=== PATIENT | female | born 2000 | race Caucasian/White ===

== ENCOUNTER → 2020-03-17 14:36 | Outpatient (BNVA) | payer SELFPAY | PROVIDERS: Family Provider Nurse Practitioner; PCP Nurse Practitioner; Visit Provider Nurse Practitioner Family | DX: J02.9 Acute pharyngitis, unspecified (principal); R05 Cough; R53.83 Other fatigue; R68.83 Chills (without fever) | CPT/HCPCS: 87635 ==

== ENCOUNTER 2020-04-23 13:02 | Emergency (ER) | payer SELFPAY ==
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
--- NOTE | 2020-04-23 13:11 | ECG_ITS ---
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 Measurements Intervals [place] Rate: 72 P: 19 LA: 169 QRS: 42 QRSD: 98 T: 55 QT: 365 QTc: 402 Interpretive Statements SINUS RHYTHM LOW QRS VOLTAGE IN PRECORDIAL LEADS [QRS DEFLECTION < 1.0 mV IN CHEST LEADS] POSSIBLE RIGHT VENTRICULAR CONDUCTION DELAY [RSR (QR) IN V1/V2] SEPTAL MYOCARDIAL INFARCTION , OF INDETERMINATE AGE [40+ ms Q WAVE IN V1/V2] No previous ECG available for comparison Electronically Signed On 04-23-2020 20:22:44 CDT by Narda Mchugh M.D. [email or web address]
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
[2020-04-23 14:13] LABS: Basophils % 0.5 %; Eosinophils % 0.5 %; Hematocrit 41.7 % (37.0-47.0); Hemoglobin 13.3 g/dL (11.5-15.3); Lymphocytes # 1.4 10^3/uL (1.5-6.5); Lymphocytes % 23.9 %; Mean Corpuscular HGB Conc 31.9 g/dL (30.0-36.0); Mean Corpuscular Hemoglobin 26.8 pg (28.0-34.0); Mean Corpuscular Volume 84.1 fL (81-99); Mean Platelet Volume 9.4 fL (7.4-10.4); Monocytes # 0.4 10^3/uL (0.2-0.9); Monocytes % 7.2 %; Neutrophils # 3.84 10^3/uL (1.8-8.0); Neutrophils % 67.5 %; Nucleated Red Blood Cells % 0 %; Platelet Count 253 10^3/cmm (130-400); Red Blood Count 4.96 10^6/uL (4.1-5.3); Red Cell Distribution Width 13.4 % (12.1-15.1); White Blood Count 5.7 10^3/uL (4.5-13.0)
[2020-04-23 14:29] LABS: HCG, Serum Qual Negative (Negative)
[2020-04-23 14:35] LABS: Alanine Aminotransferase 10 U/L (0-33); Albumin Level 4.4 g/dL (3.5-5.2); Alkaline Phosphatase 61 IU/L (35-105); Anion Gap 14.1 (5-19); Aspartate Amino Transferase 13 U/L (0-32); Blood Urea Nitrogen 8 mg/dL (6-20); Calcium 9.1 mg/dL (8.5-10.5); Carbon Dioxide 23 mmol/L (22-29); Chloride 102 mmol/L (98-107); Globulin 3.2 g/dL (1.3-4.6); Glomerular Filtration Rate 91.4 mL/min (90-130); Glucose 100 mg/dL (65-115); Osmolality Calculated 276 mOsm/kg (285-295); Potassium 4.1 mmol/L (3.5-5.1); Sodium 135 mmol/L (136-145); Total Bilirubin 0.5 mg/dL (0.15-1.2); Total Protein 7.6 g/dL (6.6-8.7)
[2020-04-23 14:36] LABS: Lactate (Lactic Acid level) 0.8 mmol/L (0.5-2.2)
[2020-04-23 14:55] LABS: INR 0.98 (0.8-1.2)
[2020-04-23 15:07] LABS: Add Urine Microscopic? YES; Bilirubin Urine Neg (Negative); Blood Urine Neg (Negative); Glucose Urine UA Norm (Normal); Ketones Urine Negative (Negative); Leukocyte Esterase Urine Negative (Negative); Nitrate Urine Negative (Negative); Protein Urine Neg (Negative); Urine Appearance Hazy (CLEAR); Urine Color Yellow (Yellow); Urobilinogen Urine Norm (Negative); pH Urine 7 (5-7)
[2020-04-23] MEDS: iohexol 300 mg/mL 100 mL Btl IV (15:10)
[2020-04-23 15:12] LABS: Add Urine Culture? No; Bacteria Urine 1+ /hpf; Mucus Urine TRACE /hpf; Squamous Epithelial Cell Urine 0-4 /hpf (0-5)
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
[2020-04-23] MEDS: sodium chloride 0.9% 1,000 ML 999 ML IV (15:59)
[2020-04-23 16:36] VITALS: BP 135/49; PULSE 71; RESP 18; O2SAT 100
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
--- NOTE | 2020-04-24 15:52 | PC.NURSE ---
Patient had frog splint applied per Clair Shukla RN.
== END 2020-04-23 16:40 | disposition home or self-care (01) ==
PROVIDERS: Emergency Provider Emergency Medicine; PCP Nurse Practitioner
DX: S20.211A Contusion of right front wall of thorax, initial encounter (principal); S80.02XA Contusion of left knee, initial encounter; S62.641A Nondisplaced fracture of proximal phalanx of left index finger, initial encounter for closed fracture; V89.2XXA Person injured in unspecified motor-vehicle accident, traffic, initial encounter
CPT/HCPCS: 12345; 29130; 36415; 70450; 71260; 72125; 73060; 73130; 73552; 73590; 74177; 80053; 81001; 83605; 84703; 85025; 85610; 93005; 96360; 99282; 99284; J7030; Q9967

== ENCOUNTER → 2020-05-01 10:18 | Outpatient (BNVA) | payer SELFPAY | PROVIDERS: PCP Nurse Practitioner; Visit Provider Nurse Practitioner Family | DX: S62.641D Nondisplaced fracture of proximal phalanx of left index finger, subsequent encounter for fracture with routine healing (principal); V89.2XXD Person injured in unspecified motor-vehicle accident, traffic, subsequent encounter; M79.605 Pain in left leg; Z68.28 Body mass index [BMI] 28.0-28.9, adult | CPT/HCPCS: 73130; 73590 ==

== ENCOUNTER → 2020-05-09 19:06 | Outpatient (BNVA) | payer OTHER, SELFPAY | PROVIDERS: PCP Nurse Practitioner; Visit Provider Nurse Practitioner Family | DX: Z20.828 Contact with and (suspected) exposure to other viral communicable diseases (principal) | CPT/HCPCS: 87635 ==

== ENCOUNTER 2020-06-17 12:54 | Outpatient (CLI) | payer SELFPAY ==
--- NOTE | 2020-06-17 13:04 | XR_ITS ---
WS: [id number] Lumbar spine, AP, both obliques, L5-S1 spot, lateral views in neutral, flexion and extension, 06/17/20 Clinical Data: back pain Comparison: Lumbar spine, 03/31/2019. Findings: No compression fractures or subluxation is seen. No disc space narrowing is seen. The transverse proc esses and SI joints are normal. The oblique films show no spondylolysis. There is no limitation of motion or subluxation on flexion or extension. XR/XR lumbar spine 6V w f/e [id number] Impression: 1. Negative lumbar spine. 2. Negative for limitation of motion or subluxation on flexion or extension.
--- NOTE | 2020-06-17 13:04 | XR_ITS ---
WS: [id number] Thoracic spine, 3 views, 06/17/2020 Clinical Data: back pain Comparison: None. Findings: No compression fractures are seen. The disc heights are normal. The para vertebral regions are normal. XR/XR thoracic spine 3V* [id number] Impression: Negative thoracic spine.
== END 2020-06-17 12:55 | disposition home or self-care (01) ==
LOC: RADWPI 12:57
PROVIDERS: PCP Nurse Practitioner; Visit Provider Family Medicine
DX: M54.5 Low back pain (principal); M54.6 Pain in thoracic spine
CPT/HCPCS: 72072; 72114

== ENCOUNTER → 2020-06-24 12:13 | Outpatient (BNVA) | payer SELFPAY | PROVIDERS: PCP Nurse Practitioner; Referring Provider Family Medicine; Visit Provider Specialist | DX: S62.641D Nondisplaced fracture of proximal phalanx of left index finger, subsequent encounter for fracture with routine healing (principal); X58.XXXD Exposure to other specified factors, subsequent encounter | CPT/HCPCS: 73140 ==

== ENCOUNTER 2020-07-14 06:00 | Outpatient (RCR) | payer SELFPAY | END 2020-08-13 23:59 | disposition home or self-care (01) | LOC: SPT 06:00 | PROVIDERS: PCP Nurse Practitioner; Referring Provider Family Medicine; Visit Provider Family Medicine | DX: M54.5 Low back pain (principal) | CPT/HCPCS: 97110; 97161 ==

== ENCOUNTER 2020-07-14 06:00 | Outpatient (RCR) | payer SELFPAY | END 2020-08-13 23:59 | disposition home or self-care (01) | LOC: TOT 06:00 | PROVIDERS: PCP Nurse Practitioner; Referring Provider Specialist; Visit Provider Specialist | DX: S62.601D Fracture of unspecified phalanx of left index finger, subsequent encounter for fracture with routine healing (principal) | CPT/HCPCS: 97110; 97165 ==

== ENCOUNTER 2020-08-14 06:00 | Outpatient (RCR) | payer SELFPAY | END 2020-09-13 23:59 | disposition home or self-care (01) | LOC: TOT 06:00 | PROVIDERS: PCP Nurse Practitioner; Referring Provider Specialist; Visit Provider Specialist | DX: S62.601D Fracture of unspecified phalanx of left index finger, subsequent encounter for fracture with routine healing (principal) | CPT/HCPCS: 97110 ==

== ENCOUNTER 2020-08-14 06:00 | Outpatient (RCR) | payer SELFPAY | END 2020-09-13 23:59 | disposition home or self-care (01) | LOC: SPT 06:00 | PROVIDERS: PCP Nurse Practitioner; Referring Provider Family Medicine; Visit Provider Family Medicine | DX: R41.841 Cognitive communication deficit (principal) | CPT/HCPCS: 97110 ==

== ENCOUNTER 2020-09-10 06:00 | Outpatient (RCR) | payer SELFPAY | END 2020-09-13 23:59 | disposition home or self-care (01) | LOC: SST 06:00 | PROVIDERS: PCP Nurse Practitioner; Referring Provider Family Medicine; Visit Provider Family Medicine | DX: R41.841 Cognitive communication deficit (principal) | CPT/HCPCS: 96125; 97129; 97130 ==

== ENCOUNTER 2020-09-14 06:00 | Outpatient (RCR) | payer SELFPAY | END 2020-10-11 23:59 | disposition home or self-care (01) | LOC: SST 06:00 | PROVIDERS: PCP Nurse Practitioner; Referring Provider Family Medicine; Visit Provider Family Medicine | DX: R41.841 Cognitive communication deficit (principal) | CPT/HCPCS: 97129; 97130 ==

== ENCOUNTER 2020-09-14 06:00 | Outpatient (RCR) | payer SELFPAY | END 2020-10-11 23:59 | disposition home or self-care (01) | LOC: SPT 06:00 | PROVIDERS: PCP Nurse Practitioner; Referring Provider Family Medicine; Visit Provider Family Medicine | DX: R41.81 Age-related cognitive decline (principal) | CPT/HCPCS: 97110 ==

== ENCOUNTER 2020-10-12 06:00 | Outpatient (RCR) | payer SELFPAY | END 2020-11-11 23:59 | disposition home or self-care (01) | LOC: SST 06:00 | PROVIDERS: PCP Nurse Practitioner; Referring Provider Family Medicine; Visit Provider Family Medicine | DX: R41.841 Cognitive communication deficit (principal) | CPT/HCPCS: 97129; 97130 ==

== ENCOUNTER 2020-10-12 06:00 | Outpatient (RCR) | payer SELFPAY | END 2020-11-11 23:59 | disposition home or self-care (01) | LOC: SPT 06:00 | PROVIDERS: PCP Nurse Practitioner; Referring Provider Family Medicine; Visit Provider Family Medicine | DX: S09.90XD Unspecified injury of head, subsequent encounter (principal); R41.841 Cognitive communication deficit; X58.XXXD Exposure to other specified factors, subsequent encounter | CPT/HCPCS: 97110 ==

== ENCOUNTER → 2020-10-23 07:57 | Outpatient (BNVA) | payer SELFPAY | PROVIDERS: PCP Nurse Practitioner Family; Visit Provider Specialist | DX: G31.84 Mild cognitive impairment of uncertain or unknown etiology (principal); F07.81 Postconcussional syndrome; G43.711 Chronic migraine without aura, intractable, with status migrainosus; F41.8 Other specified anxiety disorders | CPT/HCPCS: 96116; 99205 ==

== ENCOUNTER 2020-11-03 08:44 | Outpatient (CLI) | payer SELFPAY ==
--- NOTE | 2020-11-03 08:53 | MR_ITS ---
WS: [id number] MRI BRAIN WITHOUT CONTRAST HISTORY: G31.84 - Mild cognitive impairment, COMPARISON: 04/23/2020 CT. TECHNIQUE: Diffusion imaging, multiplanar T1, T2 and FLAIR imaging obtained. No evidence for acute infarct or hemorrhage. Flaherty-white matter differentiation is normal. No remote or acute infarcts are volume loss. Ventricles and extra-axial spaces are normal. No inferior displacement of cerebellar tonsils. The sella turcica and pituitary gland are unremarkabl e. Posterior fossa is also unremarkable. Dural venous sinuses and [place] of [place] demonstrate no abnormality on this unenhanced studies. Paranasal sinuses: Clear. Mastoid air cells: Normal. Calvarium and scalp: Intact. MR/MR head wo con* [id number] IMPRESSION: 1. Unremarkable noncontrast MRI brain.
== END 2020-11-03 08:45 | disposition home or self-care (01) ==
LOC: RADWPI 08:49
PROVIDERS: PCP Nurse Practitioner Family; Visit Provider Specialist
DX: G31.84 Mild cognitive impairment of uncertain or unknown etiology (principal); F07.81 Postconcussional syndrome
CPT/HCPCS: 70551; 95816

== ENCOUNTER 2020-11-12 06:00 | Outpatient (RCR) | payer SELFPAY | END 2020-12-11 23:59 | disposition home or self-care (01) | LOC: SST 06:00 | PROVIDERS: PCP Nurse Practitioner Family; Referring Provider Family Medicine; Visit Provider Family Medicine | DX: R41.3 Other amnesia (principal) | CPT/HCPCS: 97129; 97130 ==

== ENCOUNTER → 2020-12-02 11:33 | Outpatient (BNVA) | payer SELFPAY | PROVIDERS: PCP Nurse Practitioner Family; Visit Provider Specialist | DX: G43.709 Chronic migraine without aura, not intractable, without status migrainosus (principal); F07.81 Postconcussional syndrome | CPT/HCPCS: 99213; 99214 ==

== ENCOUNTER 2020-12-12 06:00 | Outpatient (RCR) | payer SELFPAY | END 2021-01-11 23:59 | disposition home or self-care (01) | LOC: SST 06:00 | PROVIDERS: PCP Nurse Practitioner Family; Referring Provider Family Medicine; Visit Provider Family Medicine | DX: R41.841 Cognitive communication deficit (principal) | CPT/HCPCS: 92507; 97129; 97130 ==

== ENCOUNTER 2021-01-12 06:00 | Outpatient (RCR) | payer SELFPAY | END 2021-02-10 23:59 | disposition home or self-care (01) | LOC: SST 06:00 | PROVIDERS: PCP Nurse Practitioner Family; Referring Provider Family Medicine; Visit Provider Family Medicine | DX: R41.841 Cognitive communication deficit (principal) | CPT/HCPCS: 97129; 97130 ==

== ENCOUNTER → 2021-01-21 15:02 | Outpatient (BNVA) | payer SELFPAY | PROVIDERS: PCP Nurse Practitioner Family; Visit Provider Registered Nurse Neonatal Intensive Care | DX: Z34.90 Encounter for supervision of normal pregnancy, unspecified, unspecified trimester (principal) | CPT/HCPCS: 81025 ==

== ENCOUNTER → 2021-02-04 15:54 | Outpatient (BNVA) | payer MEDICAID, SELFPAY | PROVIDERS: PCP Nurse Practitioner Family; Visit Provider Nurse Practitioner Women's Health | DX: Z32.01 Encounter for pregnancy test, result positive (principal); R30.0 Dysuria; N92.6 Irregular menstruation, unspecified | CPT/HCPCS: 81000; 81025; 87086 ==

== ENCOUNTER 2021-02-11 06:00 | Outpatient (RCR) | payer MEDICAID, SELFPAY | END 2021-03-13 23:59 | disposition home or self-care (01) | LOC: SST 06:00 | PROVIDERS: PCP Nurse Practitioner Family; Referring Provider Family Medicine; Visit Provider Family Medicine | DX: R41.841 Cognitive communication deficit (principal) | CPT/HCPCS: 87077; 87086; 87184; 97129; 97130 ==

== ENCOUNTER → 2021-02-19 09:30 | Outpatient (BNVA) | payer MEDICAID, SELFPAY | PROVIDERS: PCP Nurse Practitioner Family; Visit Provider Nurse Practitioner Women's Health | DX: O99.891 Other specified diseases and conditions complicating pregnancy (principal); R82.71 Bacteriuria; Z3A.00 Weeks of gestation of pregnancy not specified | CPT/HCPCS: 81000 ==

== ENCOUNTER → 2021-05-12 11:14 | Outpatient (BNVA) | payer BC, MEDICAID, SELFPAY | PROVIDERS: PCP Nurse Practitioner Family; Visit Provider Specialist | DX: G43.711 Chronic migraine without aura, intractable, with status migrainosus (principal); F07.81 Postconcussional syndrome; R55 Syncope and collapse | CPT/HCPCS: 99214 ==

== ENCOUNTER → 2021-06-04 08:06 | Outpatient (BNVA) | payer BC, MEDICAID, SELFPAY | PROVIDERS: PCP Nurse Practitioner Family; Visit Provider Social Worker | DX: F43.12 Post-traumatic stress disorder, chronic (principal) | CPT/HCPCS: 90834 ==

== ENCOUNTER 2021-07-04 01:48 | Outpatient (CLI) | payer BC, MEDICAID, SELFPAY ==
[2021-07-04] VITALS (56 sets, daily range): BP systolic 122–135; BP diastolic 67–75; PULSE 59–101; RESP 18; TEMP 36.6–37.4; O2SAT 92–100; BMI 30.3
[2021-07-04] MEDS: terbutaline 1 mg/mL INJ 0.25 MG SUBCUT (03:10)
[2021-07-04] MEDS: betamethasone susp 6 mg/mL 5 mL 12 MG IM (03:11)
[2021-07-04 04:00] LABS: Urine Appearance Clear (CLEAR); Urine Color Yellow (Yellow)
[2021-07-04] MEDS: lactated ringers 1,000 ML 999 ML IV (04:00)
[2021-07-04 04:02] LABS: pH Urine 8 (5-7)
[2021-07-04 04:03] LABS: Add Urine Microscopic? YES; Bilirubin Urine Neg (Negative); Blood Urine Neg (Negative); Glucose Urine UA Norm (Normal); Ketones Urine 1+ (Negative); Nitrate Urine Negative (Negative); Protein Urine 3+ (Negative); Sulfosalicylic Acid Urine Positive (Negative); Urobilinogen Urine 1 mg/dL (Negative)
[2021-07-04 04:04] LABS: Leukocyte Esterase Urine Trace (Negative)
[2021-07-04 04:05] LABS: Amorphous Sediment Urine 1+ /hpf; Bacteria Urine 1+ /hpf; Mucus Urine 4+ /hpf; RBC Urine 0-4 /hpf (0-2); Squamous Epithelial Cell Urine 0-4 /hpf (0-5); WBC Urine 15-25 /hpf (0-5)
[2021-07-04 04:06] LABS: Add Urine Culture? No
--- NOTE | 2021-07-04 06:06 | USR_ITS ---
PROCEDURE INFORMATION: Exam: US Retroperitoneal; Complete; Kidneys and Bladder Exam date and time: 07/04/2021 6:06 AM Age: 21 years old Clinical indication: Pain; Other: Lower back; ; Additional info: Lower back pain, rule out kidney stone and hydronephrosis TECHNIQUE: Imaging protocol: Real-time ultrasound of the retroperitoneum with image documentation. Complete exam focused on the kidneys and bladder. COMPARISON: CT chest abd pel w con* 04/23/2020 3:01 PM FINDINGS: Right kidney: Normal. No stones. No hydronephrosis. Left kidney: Normal. No stones. No hydronephrosis. Aorta: The visualized portion of the abdominal aorta is normal with no aneurysm. Urinary bladder: Unremarkable. US/US renal BI* [id number] IMPRESSION: Normal study Radiation Dose CTDIVOL = (mGy): DLP = (mGy-cm)
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
[2021-07-04] MEDS: cefTRIAXone 1,000 MG in sodium chloride 0.9% (plus) 50 ML 100 MG IV (06:27)
--- NOTE | 2021-07-04 09:44 | P.PN_ITS ---
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 Other than feeling off, she has no other significant symptoms. She denies any new swelling. She has no visual changes. She did complain of some contractions but those resolved after being in the hospital and being hydrated. Labor: Station: -5 Amniotic Membrane Status: Intact Monitor Mode: External Contraction Pattern: Absent Vitals/I&O/Wt Last Vital Signs Temp 98.3 F 07/04/21 03:33 Pulse 59 L 07/04/21 07:15 Resp 18 07/04/21 01:48 BP 122/67 07/04/21 07:15 Pulse Ox 98 07/04/21 07:04 Weight last 48 hrs Weight 188 lb Weight 188 lb Physical Exam Narrative: EXAM NARRATIVE: The patient is alert. She appears comfortable. Her heart has a regular rate and rhythm with no murmurs appreciated. Lungs are clear to auscultation bilaterally. She has tenderness to palpation in her lower lumbar spine area bilaterally. There is no CVA tenderness. A&P Assessment and plan (1) Low back pain: The patient is feeling much better. She tolerated a diet fine. Her back pain is resolved. She would like to go home. I instructed her to contact us, or to come back again if she had any other concerns. 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
== END 2021-07-04 09:53 | disposition home or self-care (01) ==
LOC: OPOB 01:58 → OBGYN 01:59
PROVIDERS: PCP Nurse Practitioner Family; Visit Provider Family Medicine
DX: O99.891 Other specified diseases and conditions complicating pregnancy (principal); M54.50 Low back pain, unspecified; Z3A.14 14 weeks gestation of pregnancy; O47.00 False labor before 37 completed weeks of gestation, unspecified trimester
CPT/HCPCS: 12345; 59025; 76770; 76819; 81001; 96360; 96372; 99211; J0696; J0702; J3105

== ENCOUNTER 2021-07-05 08:50 | Outpatient (CLI) | payer BC, MEDICAID, SELFPAY ==
[2021-07-05] VITALS (65 sets, daily range): BP systolic 160–208; BP diastolic 81–116; PULSE 60–100; RESP 17–22; TEMP 36.9–37.1; O2SAT 92–100; BMI 31.3
--- NOTE | 2021-07-05 09:53 | US_ITS ---
WS: [id number] RENAL ULTRASOUND HISTORY: right flank and back pain COMPARISON: 07/04/2021 TECHNIQUE: 2-D and color Doppler imaging of the kidney submitted. Right kidney: 11.1 cm x 4.5 cm x 4.2 cm. Normal echogenicity with no hydronephrosis or mass. Left kidney: 12.2 cm x 5.2 cm x 4.2 cm. Normal echogenicity with no hydronephrosis or mass. Aorta: Normal. Urinary Bladder: Normal distention. US/US renal BI* [id number] IMPRESSION: Normal renal ultrasound. No hydronephrosis.
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
[2021-07-05] MEDS: sodium chloride 0.9% 1,000 ML 999 ML IV ×2 (10:36→12:39)
[2021-07-05] MEDS: ondansetron 2 mg/ML SDV 2 mL 4 MG IVP ×2 (10:37→12:39)
[2021-07-05] MEDS: morphine 4 mg/mL SDV 1 mL 2 MG IVP (10:37)
[2021-07-05 10:40] LABS: Bilirubin Urine Neg (Negative); Blood Urine Neg (Negative); Glucose Urine UA Norm (Normal); Ketones Urine Negative (Negative); Leukocyte Esterase Urine Negative (Negative); Nitrate Urine Negative (Negative); Protein Urine 3+ (Negative); Urine Appearance Hazy (CLEAR); Urine Color Yellow (Yellow); Urobilinogen Urine Norm (Negative); pH Urine 5 (5-7)
[2021-07-05 10:41] LABS: Add Urine Microscopic? YES; Bacteria Urine 1+ /hpf; Mucus Urine 1+ /hpf; RBC Urine 0-4 /hpf (0-2); Squamous Epithelial Cell Urine 25-40 /hpf (0-5); WBC Urine 25-40 /hpf (0-5)
[2021-07-05 10:42] LABS: Add Urine Culture? No
[2021-07-05 10:47] LABS: Basophils # 0.1 10^3/uL (0.0-0.1); Basophils % 0.3 %; Eosinophils % 0.2 %; Hematocrit 32.6 % (37.0-47.0); Hemoglobin 10.9 g/dL (11.5-15.3); Lymphocytes # 2.8 10^3/uL (0.8-4.8); Lymphocytes % 15.7 %; Mean Corpuscular HGB Conc 33.4 g/dL (30.0-36.0); Mean Corpuscular Hemoglobin 29.1 pg (28.0-34.0); Mean Corpuscular Volume 86.9 fl (81-99); Mean Platelet Volume 11.6 fL (7.4-10.4); Monocytes % 5.7 %; Neutrophils # 13.32 10^3/uL (1.8-7.7); Neutrophils % 75.3 %; Nucleated Red Blood Cells % 0 %; Platelet Count 151 10^3/cmm (130-400); Red Blood Count 3.75 10^6/uL (4.1-5.3); Red Cell Distribution Width 14.1 % (12.1-15.1); White Blood Count 17.7 10^3/uL (4.0-10.0)
[2021-07-05 11:10] LABS: Alanine Aminotransferase 92 U/L (0-33); Albumin Level 3.3 g/dL (3.5-5.2); Alkaline Phosphatase 79 IU/L (35-105); Anion Gap 17.9 (5-19); Aspartate Amino Transferase 56 U/L (0-32); Blood Urea Nitrogen 14 mg/dL (6-20); Calcium 7.9 mg/dL (8.5-10.5); Carbon Dioxide 19 mmol/L (22-29); Chloride 104 mmol/L (98-107); Globulin 2.9 g/dL (1.3-4.6); Glomerular Filtration Rate 126.2 mL/min (90-130); Glucose 83 mg/dL (65-115); Osmolality Calculated 284 mOsm/kg (285-295); Potassium 3.9 mmol/L (3.5-5.1); Sodium 137 mmol/L (136-145); Total Bilirubin 0.3 mg/dL (0.15-1.2); Total Protein 6.2 g/dL (6.6-8.7)
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
--- NOTE | 2021-07-05 12:33 | US_ITS ---
WS: [id number] ULTRASOUND ABDOMINAL AORTA HISTORY: ABD PAIN COMPARISON: None available. TECHNIQUE: 2-D and Doppler imaging submitted. There is a large amount of gas and fecal content in the RIGHT lower quadrant obscuring the soft tissu es. The appendix is not identified. No inflammatory collection. US/US appendix [id number] IMPRESSION: Appendix not identified due to a large amount of fecal material in the RIGHT lo wer quadrant.
[2021-07-05] MEDS: morphine 4 mg/mL SDV 1 mL IVP ×2 (12:39→14:25)
[2021-07-05] MEDS: labetalol 5 mg/mL SDV 20mL 20 MG IVP ×2 (14:45→17:20)
[2021-07-05 15:04] LABS: Uric Acid 5.1 mg/dL (2.4-5.7)
[2021-07-05] MEDS: labetalol 5 mg/mL SDV 20mL 40 MG IVP (15:09)
[2021-07-05] MEDS: sodium chloride 0.9% 1,000 ML 125 ML IV (15:19)
[2021-07-05 15:32] LABS: Urine Creatinine 227 mg/dL (28-217)
[2021-07-05 15:44] LABS: UPRO/UCREAT Ratio 1.73 mg/mg CR; Urine Protein Random 392 mg/dL
[2021-07-05] MEDS: betamethasone susp 6 mg/mL 5 mL 12 MG IM (15:52)
[2021-07-05] MEDS: magnesium sulfate premix 4 GM/100 ML PREMIX IV (16:02)
[2021-07-05] MEDS: magnesium sulfate premix 2 GM/50 ML PIGGYBACK IV (16:03)
[2021-07-05] MEDS: labetalol 5 mg/mL SDV 20mL 80 MG IVP (16:13)
--- NOTE | 2021-07-05 16:14 | P.SS_ITS ---
Short Stay Summary Providers Date of Admit/Discharge: 07/05/21 Attending Provider: Waqas Baumann MD Primary Care Provider: Janeth Blake APN Chief Complaint: contractions HPI History of Present Illness Ayden Koenig is a 21 year old 1 female at 28 weeks and 3 days based on a first trimester ultrasound who presented to the hospital complaining of back pain and then abdominal pain. She actually arrived to the hospital yesterday complaining of back pain. She was evaluated with a urinalysis and ultrasound, and ultimately her pain resolved spontaneously she had no further complaints and she was discharged home. She had recurrent pain last night that worsened to the point where she came to the hospital this morning. She once again originally had back pain on her right lower side. That then changed to abdominal pain which then finally changed to epigastric pain. She had nausea and vomiting this morning. She denied any headache or visual changes. She denied any swelling. During her hospital stay, her blood pressure increased to the point where she was having blood pressures as high as 201/111 after having received several doses of labetalol per protocol. Prior to that point her was remarkable for having an identifiable antibody. She also had a an apparent false positive RPR. With a follow-up FTA?ABS being negative. Review of Systems General: Reports: 10 or more systems reviewed and unremarkable except in HPI and below Const: Reports: fatigue; Denies: fever(s) Eyes: Denies: change in vision Card: Denies: chest pain Resp: Denies: dyspnea or productive cough GI: Reports: abdominal pain (Currently epigastric pain), nausea, vomiting and heartburn; Denies: hematemesis or diarrhea : Reports: flank pain and urinary frequency; Denies: difficulty voiding or dysuria Musc: Reports: back pain Everardo/Lymph: Denies: easy bruising Home Meds/Allergies Home Medications and Allergies Home Medications Medication Instructions Recorded Confirmed Type [id number] 1 tab PO DAILY 07/05/21 07/05/21 History [] Allergies Allergy/AdvReac Type Severity Reaction Status Date / Time latex AdvReac ALGY-Swell Verified 07/04/21 05:27 Lip/Tongue/Throat PFSH Acute PFSH: Medical History Chronic migraine without aura, intractable, with status migrainosus Closed fracture of phalanx of left index finger Depression with anxiety No pertinent past medical history neghx:htn,dm,thyroid,dvt/pe 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 Surgical History No pertinent past surgical history Family History Grandmother Cancer MGGM- breast and lung Grandmother Cancer PGF- Lung cancer Grandfather Cancer MGGF-- Colon cancer Denies family history of Diabetes CAD (coronary artery disease) Clotting disorder Dementia Hyperlipidemia Psychiatric illness Chronic kidney disease (CKD) Suicide Bleeding disorder Family history of premature coronary artery disease Lung disease Hypertension Stroke Social History Smoking and tobacco status: never smoked Current occupational status: employed Current occupation: [employer] Female Reproductive History: : 1 Vitals/I&O/Wt Last Vital Signs Temp 98.5 F 07/05/21 15:14 Pulse 91 07/05/21 16:11 Resp 18 07/05/21 15:14 BP 201/111 07/05/21 16:04 Pulse Ox 97 07/05/21 16:11 07/05/21 07/05/21 07/05/21 06:59 14:59 22:59 Intake Total 1999 Balance 1999 Weight last 48 hrs Weight 194 lb Physical Exam Const: COMMON NORMALS: no acute distress and patient oriented x3 GENERAL APPEARANCE: cooperative and well developed HENMT: COMMON NORMALS: normocephalic and moist oral mucous membranes HEAD & SCALP: normocephalic Chest: COMMONS NORMALS: normal inspection of the chest Resp: COMMON NORMALS: normal respiratory effort and clear to auscultation bilaterally AUSCULTATION: clear to auscultation bilaterally Cardio: COMMON NORMALS: regular rate, regular rhythm, No gallops present (Cardio), No murmurs present (Cardio) and No rub (Cardio) RATE: regular rate RHYTHM: regular rhythm Extremity: COMMON NORMALS: normal to inspection Neuro: COMMON NORMALS: patient oriented x3 and no focal motor deficits Skin: COMMON NORMALS: no rashes or lesions noted GENERAL SKIN EXAM: no rashes or lesions noted Hospital Course Discharge Summary The patient had blood pressure that increased despite labetalol given for the hypertensive protocol. But has now stabilized since she has been placed on magnesium. Overall, the patient actually looks better now. The lab work as well as imaging findings will be sent. I was able to contact Dr. David with [facility] and he has agreed except the patient. Patient will be transferred via ground ambulance. SSS Data Data Completed and Pending: Completed Studies During Hospitalization Category Date Time Status [place] appendix [id number] Routine Ultrasound 07/05/21 12:33 Completed US gall bladder 7 [id number] Stat Ultrasound 07/05/21 12:22 Completed US renal BI* [id number] Routine Ultrasound 07/05/21 09:53 Completed Pending at discharge Category Date Time Status Magnesium Level ( OB Only) Q6H Lab 07/05/21 22:00 Uncollected Diagnoses at Discharge Discharge Diagnosis (1) Severe preeclampsia: Status: Acute (2) 28 weeks gestation of : Status: Acute (3) Epigastric pain: Status: Acute Discharge Plan Discharge Patient Disposition: Home Prescriptions: No Action 1 mg Tablet 1 tab PO DAILY RF: 0 Attestations Medical Necessity Statement*: The patient will be transferred Time Spent in Patient Care*: greater than 30 min Quality Metrics Clinical Quality Measures: During this hospital stay, did patient experience: None Coding Level of Care Code Acute Data Quality Consultant for Altong Fwd Diagnoses Severe preeclampsia O14.10 28 weeks gestation of Z3A.28 Epigastric pain R10.13
[2021-07-05] MEDS: magnesium sulfate premix 20 GM/500 ML BAG IV (16:27)
[2021-07-05] MEDS: hyDRALAzine 20 mg/mL INJ 1 mL 5 MG IVP (17:42)
--- NOTE | 2021-07-05 18:38 | PC.NURSE ---
1745 Air evac 1 here on floor at this time, report was given to crew and care transferred at this time Patient stable at time of care transferred.
== END 2021-07-05 18:20 | disposition home or self-care (01) ==
LOC: OPOB 08:51 → OBGYN 08:52
PROVIDERS: PCP Nurse Practitioner Family; Visit Provider Family Medicine
DX: O14.13 Severe pre-eclampsia, third trimester (principal); Z3A.28 28 weeks gestation of pregnancy; R10.13 Epigastric pain; O47.03 False labor before 37 completed weeks of gestation, third trimester; O99.891 Other specified diseases and conditions complicating pregnancy; R16.0 Hepatomegaly, not elsewhere classified
CPT/HCPCS: 12345; 36415; 51702; 59025; 76705; 76770; 80053; 81001; 82570; 84156; 84550; 85025; 93976; 96372; 99211; J0360; J0702; J2270; J2405; J3475; J3490; J7030

== ENCOUNTER → 2022-02-08 11:17 | Outpatient (BNVA) | payer BC, MEDICAID, SELFPAY | PROVIDERS: Visit Provider Registered Nurse Neonatal Intensive Care | DX: Z32.00 Encounter for pregnancy test, result unknown (principal) | CPT/HCPCS: 81025 ==

== ENCOUNTER 2022-02-22 13:49 | Emergency (ER) | payer BC, MEDICAID, SELFPAY ==
--- NOTE | 2022-02-22 14:22 | W.ED.COVID ---
HPI - COVID General: Chief Complaint: General Medical Stated Complaint: covid Symptoms, preg 12 weeks Time Seen by Provider: 02/22/22 14:22 Source: patient Mode of arrival: ambulatory Limitations: no limitations Triage information: Has fever, cough or shortness of breath. History of Present Illness: 22-year-old female at 12 weeks gestation. Patient is G2, P1. She presents with complaints of cough congestion myalgias low-grade fever initially began with some mild diarrhea which is already stopped. Patient has not had any known exposures to anyone who is COVID-positive Prior covid testing: no COVID 19 common symptoms: positive fever(s), chills, cough, non-productive cough, dyspnea, fatigue, body aches, headache(s), throat pain, nasal congestion, nausea and diarrhea; negative vomiting COVID 19 other sytmptoms: negative chest pain or requiring oxygen Onset (ago): day(s) (2) Severity: mild Pertinent comorbid conditions: Treatment prior to arrival: acetaminophen COVID Results: SARS-CoV-2 RNA (RT-PCR) Detected (NOT DETECTED) A 05/09/20 19:06 05/09/20 Review of Systems Const: Reports: fever(s), chills, body aches and fatigue ENMT: Reports: throat pain and nasal congestion Card: Denies: chest pain, palpitations, edema, dyspnea on exertion or orthopnea Resp: Reports: dyspnea and non-productive cough GI: Reports: nausea and diarrhea; Denies: abdominal pain or vomiting : Denies: flank pain, difficulty voiding, dysuria, urinary frequency or urinary urgency Skin/Breast: Denies: rash or pruritus Neuro: Reports: headache(s) PFS ED PFSH: Medical History Chronic migraine without aura, intractable, with status migrainosus Closed fracture of phalanx of left index finger Depression with anxiety No pertinent past medical history neghx:htn,dm,thyroid,dvt/pe 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 Surgical History No pertinent past surgical history Family History Grandmother Cancer MGGM- breast and lung Grandmother Cancer PGF- Lung cancer Grandfather Cancer MGGF-- Colon cancer Denies family history of Diabetes CAD (coronary artery disease) Clotting disorder Dementia Hyperlipidemia Psychiatric illness Chronic kidney disease (CKD) Suicide Bleeding disorder Family history of premature coronary artery disease Lung disease Hypertension Stroke Social History Smoking and tobacco status: never smoked Current occupational status: employed Current occupation: [employer] Physical Exam Const: COMMON NORMALS: no acute distress GENERAL APPEARANCE: cooperative and comfortable ORIENTATION/CONSCIOUSNESS: Yes awake, Yes oriented to person, Yes oriented to place and Yes oriented to time HENMT: COMMON NORMALS: normocephalic, atraumatic and hearing grossly normal bilaterally HEAD & SCALP: normocephalic and atraumatic Neck/C-Spine: COMMON NORMALS: no JVD Resp: COMMON NORMALS: normal respiratory effort, No retractions, No use of accessory muscles and clear to auscultation bilaterally AUSCULTATION: clear to auscultation bilaterally Cardio: COMMON NORMALS: no JVD, regular rate, regular rhythm and No murmurs present (Cardio) RATE: regular rate RHYTHM: regular rhythm GI: COMMON NORMALS: Soft to palpation and No hepatosplenomegaly present AUSCULTATION: Yes normoactive bowel sounds PALPATION: Yes Soft to palpation, No Tenderness to palpation present (GI), No Guarding due to palpation present (GI) and Yes No hepatosplenomegaly present Extremity: COMMON NORMALS: normal to inspection, capillary refill normal, no clubbing, cyanosis or edema, no calf tenderness and no pedal edema Neuro: SENSORIUM/ORIENTATION: Yes oriented to person, Yes oriented to place and Yes oriented to time Skin: COMMON NORMALS: no rashes or lesions noted GENERAL SKIN EXAM: no rashes or lesions noted Course Vital Signs: Vital signs: Vital Signs Temperature 98.5 F 02/22/22 14:36 Pulse Rate 114 H 02/22/22 15:03 Respiratory Rate 15 02/22/22 14:36 Blood Pressure 132/80 02/22/22 15:03 Pulse Oximetry 99 02/22/22 15:03 MDM - COVID Medical Decision Making Mild symptoms no hypoxia chest x-ray normal supportive cares recheck if he has any worsening monitor home O2. Medical Records I reviewed the patient's medical records. Lab Data I reviewed the patient's lab results. Radiology Impressions Chest X-Ray 02/22/22 14:28 IMPRESSION: No obvious acute consolidation. Suboptimal lung base assessment. Followup including lateral view may be obtained if clinically indicated. Laboratory Results Coronavirus 229E (PCR) Cancelled 02/22/22 14:36 SARS-CoV-2 (PCR) Cancelled 02/22/22 14:36 SARS-CoV-2 RNA (RT-PCR) Detected (NOT DETECTED) A 05/09/20 19:06 05/09/20 Discharge Plan Discharge Patient Disposition: Home Clinical Impression: Suspected 2019-nCoV infection, Condition: Stable Discharge Orders: Discharge ED (Routine); Ordered 02/22/22 Ordered By: Bryce Winchester Discharge Diet: Usual diet Discharge Activity: Limit activity as instructed Patient Instructions: Opioid Safety Activity Restrictions/Additional Instructions: You were tested for COVID-19. Recommend you maintain self quarantine until results are available. If you have significant worsening of symptoms return to the emergency room. Coding Level of Care Code ED Fabrication Department Supervisor for Karley Rodriguez
--- NOTE | 2022-02-22 14:28 | XRR_ITS ---
PROCEDURE INFORMATION: Exam: XR Chest Exam date and time: 02/22/2022 2:34 PM Age: 22 years old Clinical indication: Patient HX: History--cough and dyspnea since yesterday. 12 wk preg; Additional info: Dyspnea/cough TECHNIQUE: Imaging protocol: Radiologic exam of the chest. Views: 1 view. COMPARISON: CT chest abd pel w con* 04/23/2020 3:01 PM FINDINGS: Lungs: The lung bases are suboptimally assessed due to technique however the upper lungs are clear of focal consolidation. Pleural spaces: Unremarkable. No pleural effusion. No pneumothorax. Heart/Mediastinum: Cardiac silhouette appears normal in size. No obvious vascular congestion. Bones/joints: No acute osseous findings. Other findings: Single view was submitted. XR/XR chest 1V portable [id number] IMPRESSION: No obvious acute consolidation. Suboptimal lung base assessment. Followup including lateral view may be obtained if clinically indicated.
[2022-02-22 14:36] VITALS: BP 127/85; PULSE 108; RESP 15; TEMP 36.9; O2SAT 99; BMI 29.9
[2022-02-22 15:01] VITALS: BP 132/80; PULSE 114; O2SAT 99
[2022-02-22 15:03] VITALS: BP 132/80; PULSE 114; O2SAT 99
[2022-02-23 17:49] LABS: Quest SARS-CoV-2 RNA NOT DETECTED (NOT DETECTED)
== END 2022-02-22 15:06 | disposition home or self-care (01) ==
PROVIDERS: Emergency Provider Family Medicine
DX: O26.891 Other specified pregnancy related conditions, first trimester (principal); Z20.822 Contact with and (suspected) exposure to COVID-19; Z3A.12 12 weeks gestation of pregnancy
CPT/HCPCS: 71045; 87635; 99283

== ENCOUNTER 2022-07-05 19:19 | Inpatient (IN) | payer BC, MEDICAID, SELFPAY ==
[2022-07-05] VITALS (17 sets, daily range): BP systolic 101–138; BP diastolic 54–85; PULSE 62–91; RESP 15–18; TEMP 36.2–36.3; O2SAT 99–100; BMI 32.3
--- NOTE | 2022-07-05 19:17 | P.HP_ITS ---
Providers/Chief Complaint Admitting Physician: Dr. Cerrato Chief Complaint: Abdominal pain History of Present Illness Ayden Koenig is a 22 year old female at 32 weeks gestation with twins who presents to labor and delivery with complaints of contractions. Her is complicated by twin gestation, history of severe preeclampsia with delivery at 28 weeks, history of high transverse . She is receiving care in [place]. She went to the hospital last [place] with complaints of contractions. She was transferred to [place]. She was observed in the hospital and discharged last night. She reports that she contracted the entire way home and has been roseanne all day. The contractions worsened and she decided to come here to be evaluated. All of the information is per patient. We are attempting to get the records. Once here, she had cervical exam which showed 5/100/-3 with a bulging bag of water and a footling breech presentation. 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 Surgical History (Updated 07/05/22 @ 19:34 by Greta Cerrato MD) No pertinent past surgical history Family History Grandmother Cancer MGGM- breast and lung Grandmother Cancer PGF- Lung cancer Grandfather Cancer MGGF-- Colon cancer Denies family history of Diabetes CAD (coronary artery disease) Clotting disorder Dementia Hyperlipidemia Psychiatric illness Chronic kidney disease (CKD) Suicide Bleeding disorder Family history of premature coronary artery disease Lung disease Hypertension Stroke Social History Smoking and tobacco status: never smoked Current occupational status: employed Current occupation: [employer] Vitals/I&O/Wt Last Vital Signs Pulse 91 07/05/22 18:39 BP 121/74 07/05/22 18:39 Physical Exam Narrative: The patient presents in labor with twin gestation at 32 weeks. Footling breech presentation of baby A. Cervix dilated to 5 cm Const: COMMON NORMALS: no acute distress, average body habitus, patient oriented x3, no limitations, healthy appearing, alert and well nourished GENERAL APPEARANCE: cooperative, comfortable, well kempt and well developed ORIENTATION/CONSCIOUSNESS: Yes awake, Yes oriented to person, Yes oriented to place and Yes oriented to time Resp: COMMON NORMALS: normal respiratory effort EFFORT & INSPECTION: Yes able to speak in complete sentences GI: COMMON NORMALS: Soft to palpation and non-tender Extremity: COMMON NORMALS: no calf tenderness Data 07/05/22 18:55 A&P Assessment and plan (1) Twin gestation, dichorionic diamniotic: The patient received a full course of betamethasone over the weekend (2) Breech presentation: plan repeat (3) labor: (4) Previous delivery affecting : Attestations Medical Necessity Statement*: The patient will have surgery and I expect her to be here for 2 midnights. Coding Level of Care Code Acute Service Promoter Salesperson for therese Rodriguez Diagnoses Twin gestation, dichorionic diamniotic O30.049 Breech presentation O32.1XX0 labor O60.00 Previous delivery affecting O34.219
[2022-07-05 19:18] LABS: Basophils % 0.3 %; Eosinophils # 0.1 10^3/uL (0.0-0.8); Eosinophils % 0.6 %; Hemoglobin 10.5 g/dL (11.5-15.3); Lymphocytes # 2.3 10^3/uL (0.8-4.8); Lymphocytes % 16.9 %; Mean Corpuscular HGB Conc 32.8 g/dL (30.0-36.0); Mean Corpuscular Hemoglobin 26.7 pg (28.0-34.0); Mean Corpuscular Volume 81.4 fl (81-99); Mean Platelet Volume 10.3 fL (7.4-10.4); Monocytes # 1.1 10^3/uL (0.2-0.9); Monocytes % 7.6 %; Neutrophils # 9.91 10^3/uL (1.8-7.7); Neutrophils % 71.9 %; Nucleated Red Blood Cells % 0 %; Platelet Count 273 10^3/cmm (130-400); Red Blood Count 3.93 10^6/uL (4.1-5.3); Red Cell Distribution Width 13.2 % (12.1-15.1); White Blood Count 13.8 10^3/uL (4.0-10.0)
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
[2022-07-05 19:38] LABS: Amphetamines Screen Urine Negative (Negative); Barbiturates Screen Urine Negative (Negative); Benzodiazepines Screen Urine Negative (Negative); Cocaine Screen Urine Negative (Negative); Opiate Screen Urine Negative (Negative); PCP Screen Urine Negative (Negative); THC Screen Urine Negative (Negative)
[2022-07-05] MEDS: ceFAZolin 2,000 MG in sodium chloride 0.9% (plus) 50 ML 100 MG IV (19:40)
[2022-07-05] MEDS: betamethasone susp 6 mg/mL 5 mL 12 MG IM (19:56)
[2022-07-05] MEDS: metoclopramide 5 mg/mL SDV 2 mL 10 MG IVP (19:56)
[2022-07-05] MEDS: famotidine 20 mg/2 mL INJ IVP (19:56)
[2022-07-05] MEDS: citric acid-sodium citrate 30 mL UDC PO (19:57)
--- NOTE | 2022-07-05 20:52 | P.PCN_ITS ---
PACU note Narrative: VSS, Good respiratory effort, report to DIESEL TECHNICIAN Exam: awake
--- NOTE | 2022-07-05 20:52 | PM.PACU ---
PACU note Narrative: VSS, Good respiratory effort, report to GENETICS PHYSICIAN Exam: awake
--- NOTE | 2022-07-05 20:55 | P.OP_ITS ---
Operative Report Date of procedure: July 05, 2022 Pre-op diagnosis: Preop Diagnosis twins active labor Post-op diagnosis: same Post-op findings: twin gestation in the breech/breech presentation. Normal appearing uterus, tubes and ovaries Procedure done: repeat Specimens removed/disposition: placentas- discarded Surgeon: Greta Cerrato Anesthesia: Other (spinal) IV fluids (mL): 1,200 Urine output (mL): 50 Complications: none Condition: stable Disposition: PACU Procedure: The patient was taken to the operating room where spinal anesthesia was adminis tered and found to be adequate. She was prepped and draped in the normal sterile fashion in the dorsal supine position with a leftward tilt. A Pfannenstiel skin incision was made and carried down to the underlying layer of fascia. The fascia was nicked in the midline and extended laterally with the Rider scissors. The fascia was then tented up and the rectus muscles dissected off sharply. The rectus muscles were and the peritoneum entered bluntly with the digit. The peritoneal incision was extended superiorly and inferiorly with good visualization of the bladder. The Jose Ramon O retractor was placed. It was clear of any bowel or omentum. The bladder flap was created sharply with the Metzenbaum scissors. A low transverse uterine incision was made and carried down to the bag of water. The bag of water was ruptured and the uterine incision extended cephalocaudad. Baby A was in the rhonda breech presentation. The breech of baby A was grasped and brought through the incision, followed by the body, shoulders and head. There was a double nuchal cord, which was reduced at delivery. The cord was quickly clamped and cut and the baby was handed to waiting pipeline integrity engineer. The bag of water of baby B was ruptured. Baby B was in the footling breech presentation. Both feet were gasped and brought through the incision, followed by the body and head. The cord was quickly clamped and cut and handed to the waiting pipeline integrity engineer. The placentas were delivered by expression. The uterus was cleared of all clots and debris. The uterine incision was closed with 0 Vicryl in a running fashion. A second imbricating layer of 3-0 Monocryl was used to close the uterus. The bladder flap was closed with 3-0 Monocryl. There was excellent hemostasis. The Jose Ramon O retractor was removed. The peritoneum was closed with 3-0 Monocryl, incorporating the rectus muscle. The fascia was closed with 0 Vicryl in 2 separate sutures overlapping in the midline. The skin was closed with absorbable collette. Apgars on baby A 6 at 1 minute and 9 at 5 minutes. weight 3 pounds 10 ounces. Apgars on baby B 7 at 1 minute and 7 at 5 minutes. weight 3 pounds 5 ounces. Mother was stable post delivery. The babies were taken to the nursery for stabilization and transfer.
[2022-07-05] MEDS: ondansetron 2 mg/ML SDV 2 mL 4 MG IVP (21:05)
[2022-07-05 23:25] LABS: Rubella IgG 3.5 IU/mL (0.0-10.0)
[2022-07-05 23:28] LABS: Hepatitis B Surface Antigen Non-Reactive (Nonreactive)
[2022-07-05 23:38] LABS: Rapid Plasma Reagin Syphilis Nonreactive (Nonreactive)
[2022-07-05 23:39] LABS: HIV 1 & 2 Antibody Non-Reactive (Non-Reactiv); HIV 1 & 2 Antigen Non-Reactive (Non-Reactiv)
[2022-07-06] VITALS (25 sets, daily range): BP systolic 111–150; BP diastolic 61–82; PULSE 54–91; RESP 14–17; TEMP 36.1–36.6
[2022-07-06] MEDS: dextrose 5%-lactated ringers 1,000 ML 125 ML IV (00:18)
[2022-07-06] MEDS: acetaminophen 325 mg Tablet 650 MG PO (04:11)
[2022-07-06] MEDS: ketorolac 30 mg/mL INJ IVP (06:25)
--- NOTE | 2022-07-06 12:47 | P.DS_ITS ---
Discharge Providers Date of Admission: 07/05/22 19:19 Date of Discharge: July 06, 2022 Attending Provider at Admission: Greta Cerrato MD Attending Provider at Discharge: Greta Cerrato MD Diagnoses at Discharge Discharge Diagnosis (1) Twin gestation, dichorionic diamniotic: Status: Acute (2) Breech presentation: Status: Acute (3) labor: Status: Acute (4) Previous delivery affecting : Status: Acute Reason for Visit Reason for Visit: Abdominal pain Hospital Course Hospital Course The patient was admitted last night with complaints of labor with a twin gestation. She had a repeat . The babies were 32 weeks and they were transferred to [place] for care. The patient was doing well on postop day #1 and requested discharge to be with her babies. Physical Exam Narrative: The patient is doing well today. No concerns. Const: COMMON NORMALS: no acute distress, patient oriented x3, no limitations, healthy appearing, alert and well nourished GENERAL APPEARANCE: cooperative, comfortable, well kempt and well developed ORIENTATION/CONSCIOUSNESS: Yes awake, Yes oriented to person, Yes oriented to place and Yes oriented to time Resp: COMMON NORMALS: normal respiratory effort EFFORT & INSPECTION: Yes able to speak in complete sentences GI: COMMON NORMALS: Soft to palpation and non-tender PALPATION: Yes Soft to palpation Extremity: COMMON NORMALS: no calf tenderness Neuro: COMMON NORMALS: patient oriented x3 SENSORIUM/ORIENTATION: Yes alert, Yes oriented to person, Yes oriented to place and Yes oriented to time Psych: APPEARANCE: Yes well kempt Skin: WOUNDS: Yes surgical site (clean/dry/intact) Urinary Catheter Management: Gerardo: Cath Placed During This Visit: yes, but has since been removed by the nurse Reason for Continuing Indwelling Catheter: Decision to DC Catheter Urinary Catheter Date of Insertion: 07/05/22 Urinary Catheter Time of Insertion: 19:50 Date Urinary Catheter Removed: 07/06/22 Time Urinary Catheter Discontinued: 08:30 Discharge Data Studies Completed and Pending Pending at discharge Category Date Time Status Chlamydia Trachomatis NOLA Routine Lab 07/05/22 18:30 Received Complete Crossmatch Routine Lab 07/05/22 21:35 Results Hemagram Timed Lab 07/06/22 10:50 Ordered Neisseria Gonorrhoeae NOLA Routine Lab 07/05/22 18:30 Received Retype for Patiets ABO/Rh Routine Lab 07/05/22 21:35 Results Rhogam [Rho D Immune Globulin] Routine Lab 07/06/22 02:15 Results Laboratory Results WBC 13.8 10^3/uL (4.0-10.0) H 07/05/22 18:55 RBC 3.93 10^6/uL (4.1-5.3) L 07/05/22 18:55 Hgb 10.5 g/dL (11.5-15.3) L 07/05/22 18:55 Hct 32.0 % (37.0-47.0) L 07/05/22 18:55 MCV 81.4 fl (81-99) 07/05/22 18:55 MCH 26.7 pg (28.0-34.0) L 07/05/22 18:55 MCHC 32.8 g/dL (30.0-36.0) 07/05/22 18:55 RDW 13.2 % (12.1-15.1) 07/05/22 18:55 Plt Count 273 10^3/cmm (130-400) 07/05/22 18:55 MPV 10.3 fL (7.4-10.4) 07/05/22 18:55 Neut % (Auto) 71.9 % 07/05/22 18:55 Lymph % (Auto) 16.9 % 07/05/22 18:55 [place] % (Auto) 7.6 % 07/05/22 18:55 Eos % (Auto) 0.6 % 07/05/22 18:55 Baso % (Auto) 0.3 % 07/05/22 18:55 Neut # (Auto) 9.91 10^3/uL (1.8-7.7) H 07/05/22 18:55 Lymph # (Auto) 2.3 10^3/uL (0.8-4.8) 07/05/22 18:55 [place] # (Auto) 1.1 10^3/uL (0.2-0.9) H 07/05/22 18:55 Eos # (Auto) 0.1 10^3/uL (0.0-0.8) 07/05/22 18:55 Baso # (Auto) 0.0 10^3/uL (0.0-0.1) 07/05/22 18:55 Nucleated RBC % (auto) 0 % 07/05/22 18:55 Nucleated RBCs # 0.0 /100WBC 07/05/22 18:55 Urine Opiates Screen Negative ng/mL (Negative) 07/05/22 18:30 Ur Barbiturates Screen Negative ng/mL (Negative) 07/05/22 18:30 Ur Phencyclidine Scrn Negative ng/mL (Negative) 07/05/22 18:30 Ur Amphetamines Screen Negative ng/mL (Negative) 07/05/22 18:30 U Benzodiazepines Scrn Negative ng/mL (Negative) 07/05/22 18:30 Urine Cocaine Screen Negative ng/mL (Negative) 07/05/22 18:30 U Marijuana (THC) Screen Negative ng/mL (Negative) 07/05/22 18:30 RPR Nonreactive (Nonreactive) 07/05/22 22:50 Hep Bs Antigen Non-reactive (Nonreactive) 07/05/22 22:50 HIV 1&2 Ab & HIV 1 Ag Non-reactive (Non-Reactiv) 07/05/22 22:50 HIV 1&2 Antibody Non-reactive (Non-Reactiv) 07/05/22 22:50 Rubella IgG Antibody 3.5 IU/mL (0.0-10.0) 07/05/22 22:50 Blood Type O Negative 07/05/22 18:55 Rho(D) Type Negative 07/05/22 18:55 Antibody Screen Positive 07/05/22 18:55 Antibody Identification Anti-D 07/05/22 18:55 Screen Negative (Negative) 07/06/22 10:35 Vitals Last Vital Signs Temp 97.8 F 07/06/22 05:38 Pulse 54 L 07/06/22 07:37 Resp 16 07/06/22 05:38 BP 120/67 07/06/22 07:37 Pulse Ox 100 07/05/22 21:12 O2 Del Method 07/05/22 21:12 Discharge Plan Discharge Patient Disposition: Home Condition: Stable Prescriptions: New ibuprofen 800 mg Tablet 800 mg PO TID Qty: 30 0RF oxycodone-acetaminophen 5-325 mg Tablet 1 tab PO Q4H PRN (Reason: Moderate To Severe Pain) Qty: 30 0RF docusate sodium 100 mg Capsule 100 mg PO BID Qty: 60 0RF ferrous sulfate 325 mg (65 mg iron) Tablet,Delayed Release (Dr/Ec) 325 mg PO BIDWM Qty: 60 6RF Discharge Orders: Discharge Order (Routine); Ordered 07/06/22 Ordered By: Greta Cerrato Referrals: Greta Cerrato MD [Physician] - 2 weeks Patient Instructions: Depression (DC), Bleeding (DC), Preeclampsia and Eclampsia After Delivery (GEN), OB WHC, OB Discharge Report, OB Food/Drug Interaction Guide, Opioid Safety, OB Home Care, OB Proud Parent Packet Discharge Attestations Time Spent in Discharge Care*: less than 30 min Quality Metrics Clinical Quality Measures [ No reported AMI, CVA or VTE this stay] Coding Level of Care Code Acute Chg FW DC note Diagnoses Twin gestation, dichorionic diamniotic O30.049 Breech presentation O32.1XX0 labor O60.00 Previous delivery affecting O34.219
[2022-07-06 14:03] LABS: Hematocrit 28.1 % (37.0-47.0); Hemoglobin 9.3 g/dL (11.5-15.3); Mean Corpuscular HGB Conc 33.1 g/dL (30.0-36.0); Mean Corpuscular Hemoglobin 26.7 pg (28.0-34.0); Mean Corpuscular Volume 80.7 fl (81-99); Mean Platelet Volume 10.8 fL (7.4-10.4); Platelet Count 271 10^3/cmm (130-400); Red Blood Count 3.48 10^6/uL (4.1-5.3); White Blood Count 19.6 10^3/uL (4.0-10.0)
[2022-07-06] MEDS: ibuprofen 800 mg tablet PO (15:54)
[2022-07-06] MEDS: medroxyprogesterone 150 mg/ml SDV 1 mL IM (15:56)
--- NOTE | 2022-07-06 18:08 | PC.NURSE ---
Pt refused MMR vaccine, education given. Pt verbalized understanding.
[2022-07-06] MEDS: oxyCODONE-APAP 5-325 mg Tablet PO (18:40)
[2022-07-06] MEDS: docusate sodium 100 mg Capsule PO (18:40)
[2022-07-06] MEDS: ferrous sulfate EC 325 mg Tablet PO (18:41)
== END 2022-07-06 18:45 | disposition home or self-care (01) | DRG 786 ==
LOC: OPOB 19:19 → OBGYN 19:19
PROVIDERS: Absent Provider Obstetrics & Gynecology; Admitting Provider Obstetrics & Gynecology; Visit Provider Obstetrics & Gynecology
PROC: 10D00Z1 Extraction of Products of Conception, Low, Open Approach (ICD-10-PCS; CPT 59514; principal; 2022-07-05 19:35)
DX: O32.8XX1 Maternal care for other malpresentation of fetus, fetus 1 (principal); O60.14X1 Preterm labor third trimester with preterm delivery third trimester, fetus 1; O60.14X2 Preterm labor third trimester with preterm delivery third trimester, fetus 2; O30.043 Twin pregnancy, dichorionic/diamniotic, third trimester; Z3A.32 32 weeks gestation of pregnancy; Z37.2 Twins, both liveborn; O34.218 Maternal care for other type scar from previous cesarean delivery; O32.8XX2 Maternal care for other malpresentation of fetus, fetus 2; O69.1XX1 Labor and delivery complicated by cord around neck, with compression, fetus 1
CPT/HCPCS: 36415; 36430; 51702; 59025; 59409; 80306; 80503; 85025; 85027; 85460; 86592; 86762; 86850; 86870; 86900; 87340; 87491; 87591; 87806; 90384; 96372; 96374; 96376; 99211; J0690; J0702; J1050; J1885; J2274; J2405; J2590; J2765; J3490; J7121

== ENCOUNTER 2022-10-21 17:42 | Emergency (ER) | payer BC, MEDICAID, SELFPAY ==
[2022-10-21 17:53] VITALS: BP 150/80; PULSE 93; RESP 16; TEMP 36.6; O2SAT 100
--- NOTE | 2022-10-21 18:02 | ED_ITS ---
HPI - Allergic Reaction General: Chief complaint: Allergic Reaction Stated complaint: Rash Time Seen by Provider: 10/21/22 17:59 Source: patient Mode of arrival: ambulatory Limitations: no limitations History of Present Illness: HPI narrative: Patient is a 22-year-old female presents to ED today with a complaint of a pruritic rash to her anterior chest and buttocks that she states has been present for at least the past 2 months. Patient states she was recently prescribed triamcinolone 0.025% cream she states she has been using this without relief. Denies chemical, household, environmental exposures. No friends/family with similar rashes. MD complaint: other (rash) Onset (ago): month(s) Associated symptoms: Reports no associated symptoms Severity: moderate Treatment prior to arrival: steroids Previous Allergic Reaction History: none Review of Systems Const: Denies: fever(s), chills, body aches, fatigue or malaise Eyes: Reports: other (states sometimes her eyes swell/ get puffy ) ENMT: Denies: throat pain, odynophagia, ear or mastoid pain, nasal discharge, nasal congestion, post nasal drip or sinus pain Skin/Breast: Reports: rash and pruritus Neuro: Denies: headache(s), numbness in extremities, weakness in extremities or sensory changes PFSH ED PFSH: Medical History Chronic migraine without aura, intractable, with status migrainosus Closed fracture of phalanx of left index finger Depression with anxiety No pertinent past medical history neghx:htn,dm,thyroid,dvt/pe PCP: Janeth ELI Twin gestation, dichorionic diamniotic Surgical History No pertinent past surgical history Previous delivery affecting Family History Grandmother Cancer MGGM- breast and lung Grandmother Cancer PGF- Lung cancer Grandfather Cancer MGGF-- Colon cancer Denies family history of Diabetes CAD (coronary artery disease) Clotting disorder Dementia Hyperlipidemia Psychiatric illness Chronic kidney disease (CKD) Suicide Bleeding disorder Family history of premature coronary artery disease Lung disease Hypertension Stroke Social History Smoking and tobacco status: never smoked Current occupational status: employed Current occupation: [employer] Physical Exam Const: COMMON NORMALS: no acute distress, average body habitus, patient orie nted x3, no limitations, healthy appearing, alert and well nourished Neuro: COMMON NORMALS: patient oriented x3 SENSORIUM/ORIENTATION: Yes alert Skin: SKIN IMAGES (FEMALE): 1. 2. several erythematous excoriated papules Course Vital Signs: Vital signs: Vital Signs Temperature 97.9 F 10/21/22 17:53 Pulse Rate 93 10/21/22 17:53 Respiratory Rate 16 10/21/22 17:53 Blood Pressure 150/80 10/21/22 17:53 Pulse Oximetry 100 10/21/22 17:53 Oxygen Delivery Me thod 10/21/22 17:53 MDM - Allergic Reaction Medical Decision Making Patient here with a pruritic rash over the past 2 months. Will increase the potency of her triamcinolone 0.025% cream as she did not get any relief from this. She has appointment with PCP next week. They can refer to dermatology if indicated. Discharge Plan Discharge Patient Disposition: Home Clinical Impression: Dermatitis Condition: Stable Prescriptions: New triamcinolone acetonide 0.1 % lotion 1 applic topical DAILY Qty: 60 0RF No Action triamcinolone acetonide 0.025 % cream 1 applic topical DAILY Qty: 30 0RF medroxyprogesterone [Depo-Provera] 150 mg/mL syringe 150 mg IM .every 90 days Qty: 1 4RF Discharge Orders: Discharge ED (Routine); Ordered 10/21/22 Ordered By: Celeste Zhao Coding Level of Care Code ED Dumpling Machine Operator for Chg Jennifer
--- NOTE | 2022-10-22 12:08 | PC.SOCIAL ---
CM was able to speak with patient who states that she does have an appointment with Dr. Estrella scheduled for 10/27.
== END 2022-10-21 18:23 | disposition home or self-care (01) ==
PROVIDERS: Emergency Provider Physician Assistant
DX: L30.9 Dermatitis, unspecified (principal)
CPT/HCPCS: 99283

== ENCOUNTER → 2023-01-23 09:00 | Outpatient (BNVA) | payer BC, MEDICAID, SELFPAY | PROVIDERS: Visit Provider Obstetrics & Gynecology | DX: Z01.419 Encounter for gynecological examination (general) (routine) without abnormal findings (principal) | CPT/HCPCS: 88175 ==

== ENCOUNTER → 2023-05-07 16:46 | Outpatient (BNVA) | payer BC, MEDICAID, SELFPAY | PROVIDERS: Visit Provider Emergency Medicine | DX: R50.9 Fever, unspecified (principal); Z20.822 Contact with and (suspected) exposure to COVID-19 | CPT/HCPCS: 87426 ==

== ENCOUNTER 2023-08-06 16:10 | Emergency (ER) | payer BC, MEDICAID, SELFPAY ==
[2023-08-06 16:15] VITALS: BP 149/81; PULSE 92; RESP 16; TEMP 36.9; O2SAT 99
--- NOTE | 2023-08-06 16:37 | ED_ITS ---
HPI - Female Genitourinary 2 General: Chief complaint: Urogenital-Female Stated complaint: low back pain Time Seen by Provider: 08/06/23 16:29 Source: patient Mode of arrival: ambulatory Limitations: no limitations History of Present Illness: 23-year-old female states that she has h ad some dysuria for the last 3 days states today started having bilateral low back pain its been sharp in nature she had a history of UTIs she denies any fever denies vomiting rates her pain a 3 out of 10 denies any worsening proving factors denies any vaginal discharge. Associated symptoms: Deny abdominal pain, headache(s) or nausea Review of Systems 2 Const: Denies: fever(s), chills, body aches or change in appetite ENMT: Denies: throat pain or dental pain Card: Denies: chest pain Resp: Denies: dyspnea GI: Denies: abdominal pain, nausea, vomiting or diarrhea : Reports: dysuria Musc: Reports: back pain; Denies: neck pain Skin/Breast: Denies: rash Neuro: Denies: headache(s) PFSH ED 2 PFSH: Medical History Twin gestation, dichorionic diamniotic Severe preeclampsia Depression with anxiety Chronic migraine without aura, intractable, with status migrainosus No pertinent past medical history neghx:htn,dm,thyroid,dvt/pe PCP: Janeth Blake CERTIFIED [employer] Closed fracture of phalanx of left index finger Surgical History Previous delivery affecting No pertinent past surgical history Family History Grandmother Cancer MGGM- breast and lung Grandmother Cancer PGF- Lung cancer Grandfather Cancer MGGF-- Colon cancer Denies family history of Diabetes CAD (coronary artery disease) Clotting disorder Dementia Hyperlipidemia Psychiatric illness Chronic kidney disease (CKD) Suicide Bleeding disorder Family history of premature coronary artery disease Lung disease Hypertension Stroke Social History Smoking and tobacco/nicotine status: never used tobacco/nicotine Substance/Drug Use: never Current occupational status: employed Current occupation: [employer] Physical Exam 2 Const: COMMON NORMALS: no acute distress, patient oriented x3 and healthy appearing HENMT: COMMON NORMALS: normocephalic and atraumatic HEAD & SCALP: n ormocephalic and atraumatic Eye: COMMON NORMALS: conjunctivae normal CONJUNCTIVA: Yes conjunctivae normal Neck/C-Spine: COMMON NORMALS: full ROM and supple Chest: COMMONS NORMALS: normal inspection of the chest Resp: COMMON NORMALS: normal respiratory effort Cardio: COMMON NORMALS: regular rate, regular rhythm and No murmurs present (Cardio) RATE: regular rate RHYTHM: regular rhythm GI: COMMON NORMALS: Normal to inspection, nondistended, normoactive bowel sounds present, Soft to palpation, non-tender and no masses PALPATION: Yes Soft to palpation Back/Pelvis: OTHER: No midline tenderness slight tenderness bilateral lower back Extremity: COMMON NORMALS: normal to inspection and full ROM Neuro: COMMON NORMALS: patient oriented x3, moves all extremities and no focal motor deficits Psych: COMMON NORMALS: mental status grossly normal, Normal thought process present and cooperative THOUGHT PROCESS: Normal thought process present Skin: COMMON NORMALS: no rashes or lesions noted and no wounds GENERAL SKIN EXAM: no rashes or lesions noted Course 2 Vital Signs: Vital signs: Vital Signs Temperature 98.5 F 08/06/23 16:15 Pulse Rate 92 08/06/23 16:15 Respiratory Rate 16 08/06/23 16:15 Blood Pressure 149/81 08/06/23 16:15 Pulse Oximetry 99 08/06/23 16:15 Oxygen Delivery Me thod Room Air 08/06/23 16:15 MDM - Female Medical Decision Making Patient presents here with back pain dysuria does have a UTI no signs of kidney stone blood work here is normal pains improved give her IV dose antibiotics we will prescribe her Keflex for home she is to follow-up with PCP and return if worsening she understands agrees to plan. Medical Records I reviewed the patient's medical records. Lab Data I reviewed the patient's lab results. 08/06/23 16:46 08/06/23 16:46 Laboratory Results WBC 11.54 10^3/uL (3.29-11.43) H 08/06/23 16:46 RBC 4.98 10^6/uL (3.85-5.65) 08/06/23 16:46 Hgb 12.40 g/dL (11.27-16.99) 08/06/23 16:46 Hct 38.3 % (36-47) 08/06/23 16:46 MCV 76.9 fl (85-98) L 08/06/23 16:46 MCH 24.9 pg (27-33) L 08/06/23 16:46 MCHC 32.4 g/dL (30-55) 08/06/23 16:46 RDW 14.5 % (12.1-15.1) 08/06/23 16:46 Plt Count 278 10^3/cmm (157-399) 08/06/23 16:46 MPV 9.2 fL (7.4-10.4) 08/06/23 16:46 Neut % (Auto) 68.1 % 08/06/23 16:46 Lymph % (Auto) 22.1 % 08/06/23 16:46 [place] % (Auto) 6.0 % 08/06/23 16:46 Eos % (Auto) 3.2 % 08/06/23 16:46 Baso % (Auto) 0.3 % 08/06/23 16:46 Neut # (Auto) 7.85 10^3/uL (1.8-7.7) H 08/06/23 16:46 Lymph # (Auto) 2.6 10^3/uL (0.8-4.8) 08/06/23 16:46 [place] # (Auto) 0.7 10^3/uL (0.2-0.9) 08/06/23 16:46 Eos # (Auto) 0.4 10^3/uL (0.0-0.8) 08/06/23 16:46 Baso # (Auto) 0.0 10^3/uL (0.0-0.1) 08/06/23 16:46 Nucleated RBC % (auto) 0 % 08/06/23 16:46 Nucleated RBCs # 0.0 /100WBC 08/06/23 16:46 Sodium 138 mmol/L (136-145) 08/06/23 16:46 Potassium 4.3 mmol/L (3.5-5.1) 08/06/23 16:46 Chloride 103 mmol/L (98-107) 08/06/23 16:46 Carbon Dioxide 23 mmol/L (22-29) 08/06/23 16:46 Anion Gap 16.3 (5-19) 08/06/23 16:46 BUN 12 mg/dL (6-20) 08/06/23 16:46 Creatinine 0.8 mg/dL (0.5-0.9) 08/06/23 16:46 GFR Calculation 88.9 mL/min (90-130) L 08/06/23 16:46 Glucose 97 mg/dL (65-115) 08/06/23 16:46 Calculated Osmolality 286 mOsm/kg (285-295) 08/06/23 16:46 Calcium 9.3 mg/dL (8.5-10.5) 08/06/23 16:46 Total Bilirubin 0.2 mg/dL (0.15-1.2) 08/06/23 16:46 AST 12 U/L (0-32) 08/06/23 16:46 ALT 9 U/L (0-33) 08/06/23 16:46 Alkaline Phosphatase 85 U/L (35-105) 08/06/23 16:46 Total Protein 7.8 g/dL (6.6-8.7) 08/06/23 16:46 Albumin 4.5 g/dL (3.5-5.2) 08/06/23 16:46 Globulin 3.3 g/dL (1.3-4.6) 08/06/23 16:46 Lipase 24 U/L (13-60) 08/06/23 16:46 HCG, Qual Negative (Negative) 08/06/23 16:46 Urine Color Straw (Yellow) 08/06/23 16:50 Urine Appearance Cloudy (CLEAR) A 08/06/23 16:50 Urine pH 5 (5-7) 08/06/23 16:50 Ur Specific [place] 1.015 (1.005-1.030) 08/06/23 16:50 Urine Protein Trace (Negative) 08/06/23 16:50 Urine Glucose (UA) Norm (Normal) 08/06/23 16:50 Urine Ketones Negative (Negative) 08/06/23 16:50 Urine Blood 3+ (Negative) H 08/06/23 16:50 Urine Nitrate Negative (Negative) 08/06/23 16:50 Urine Bilirubin Neg (Negative) 08/06/23 16:50 Urine Urobilinogen Norm mg/dL (Negative) 08/06/23 16:50 Ur Leukocyte Esterase 2+ (Negative) H 08/06/23 16:50 Urine RBC 10-15 /hpf (0-2) H 08/06/23 16:50 Urine WBC Too numerous to cnt /hpf (0-5) H 08/06/23 16:50 Ur Squamous Epith Cells 5-10 /hpf (0-5) H 08/06/23 16:50 Amorphous Sediment Not Reportable 08/06/23 16:50 Urine Bacteria 1+ /hpf (NONE) H 08/06/23 16:50 No radiology studies performed this visit Discharge Plan Discharge Patient Disposition: Home Clinical Impression: Urinary tract infection Qualifiers: Urinary tract infection type: acute cystitis Condition: Stable Prescriptions: New cephalexin 500 mg capsule 500 mg PO TID 7 Days Qty: 21 0RF Naprosyn 500 mg tablet 500 mg PO BID PRN (Reason: pain) Qty: 20 0RF No Action levonorgestrel-ethinyl estrad [Aviane] 0.1-20 mg-mcg tablet 1 tab PO DAILY Qty: 28 12RF cetirizine [Zyrtec] 10 mg tablet 10 mg PO DAILY Qty: 30 0RF fluticasone propionate [Flonase Allergy Relief] 50 mcg/actuation spray,suspension 2 spray intranasal DAILY Qty: 16 0RF Rx Instructions: administer into each nostril Discharge Orders: Discharge ED (Routine); Ordered 08/06/23 Ordered By: Yemi Savage Discharge Diet: Advance as tolerated Discharge Activity: Resume usual activity Patient Instructions: Urinary Tract Infection in Women (ED) Coding Level of Care Code ED Park Naturalist for Karley Rodriguez
[2023-08-06 16:52] LABS: Basophils % 0.3 %; Eosinophils # 0.4 10^3/uL (0.0-0.8); Eosinophils % 3.2 %; Hematocrit 38.3 % (36-47); Lymphocytes # 2.6 10^3/uL (0.8-4.8); Lymphocytes % 22.1 %; Mean Corpuscular HGB Conc 32.4 g/dL (30-55); Mean Corpuscular Hemoglobin 24.9 pg (27-33); Mean Corpuscular Volume 76.9 fl (85-98); Mean Platelet Volume 9.2 fL (7.4-10.4); Monocytes # 0.7 10^3/uL (0.2-0.9); Neutrophils # 7.85 10^3/uL (1.8-7.7); Neutrophils % 68.1 %; Nucleated Red Blood Cells % 0 %; Platelet Count 278 10^3/cmm (157-399); Red Blood Count 4.98 10^6/uL (3.85-5.65); Red Cell Distribution Width 14.5 % (12.1-15.1); White Blood Count 11.54 10^3/uL (3.29-11.43)
[2023-08-06] MEDS: ondansetron 2 mg/ML SDV 2 mL 4 MG IVP (17:01)
[2023-08-06] MEDS: sodium chloride 0.9% 1,000 ML 999 ML IV (17:01)
[2023-08-06] MEDS: ketorolac 30 mg/mL INJ 15 MG IVP (17:03)
[2023-08-06 17:05] LABS: HCG, Serum Qual Negative (Negative)
[2023-08-06 17:07] LABS: Alanine Aminotransferase 9 U/L (0-33); Albumin Level 4.5 g/dL (3.5-5.2); Alkaline Phosphatase 85 U/L (35-105); Anion Gap 16.3 (5-19); Aspartate Amino Transferase 12 U/L (0-32); Blood Urea Nitrogen 12 mg/dL (6-20); Calcium 9.3 mg/dL (8.5-10.5); Carbon Dioxide 23 mmol/L (22-29); Chloride 103 mmol/L (98-107); Globulin 3.3 g/dL (1.3-4.6); Glomerular Filtration Rate 88.9 mL/min (90-130); Glucose 97 mg/dL (65-115); Lipase 24 U/L (13-60); Osmolality Calculated 286 mOsm/kg (285-295); Potassium 4.3 mmol/L (3.5-5.1); Sodium 138 mmol/L (136-145); Total Bilirubin 0.2 mg/dL (0.15-1.2); Total Protein 7.8 g/dL (6.6-8.7)
[2023-08-06 17:30] LABS: Blood Urine 3+ (Negative); Glucose Urine UA Norm (Normal); Ketones Urine Negative (Negative); Protein Urine Trace (Negative); Specific Gravity, Urine 1.015 (1.005-1.030); Urine Appearance Cloudy (CLEAR); Urine Color Straw (Yellow); pH Urine 5 (5-7)
[2023-08-06 17:31] LABS: Add Urine Culture? Yes; Add Urine Microscopic? YES; Bacteria Urine 1+ /hpf; Bilirubin Urine Neg (Negative); Leukocyte Esterase Urine 2+ (Negative); Nitrate Urine Negative (Negative); Urobilinogen Urine Norm (Negative); WBC Urine TOO NUMEROUS TO CNT /hpf (0-5)
[2023-08-06] MEDS: cefTRIAXone 1,000 MG in sodium chloride 0.9% (plus) 50 ML 100 MG IV (17:46)
== END 2023-08-06 18:05 | disposition home or self-care (01) ==
PROVIDERS: Nurse Practitioner Family; Emergency Provider Emergency Medicine
DX: N30.00 Acute cystitis without hematuria (principal)
CPT/HCPCS: 36415; 80053; 81001; 83690; 84703; 85025; 87077; 87086; 87186; 96374; 96375; 99284; J0696; J1885; J2405; J7030

== ENCOUNTER → 2023-09-28 10:35 | Outpatient (BNVA) | payer BC, MEDICAID, SELFPAY | PROVIDERS: Visit Provider Registered Nurse Neonatal Intensive Care | DX: R53.83 Other fatigue (principal) | CPT/HCPCS: 80053; 84443; 85025 ==

== ENCOUNTER → 2023-10-04 13:22 | Outpatient (BNVA) | payer BC, MEDICAID, SELFPAY | PROVIDERS: Visit Provider Nurse Practitioner | DX: R05.8 Other specified cough (principal) | CPT/HCPCS: 87400 ==

== ENCOUNTER 2023-11-14 17:57 | Emergency (ER) | payer BC, MEDICAID, SELFPAY ==
[2023-11-14 18:04] VITALS: BP 126/85; PULSE 94; RESP 16; TEMP 36.9; O2SAT 100; BMI 29.0
--- NOTE | 2023-11-14 18:18 | XRR_ITS ---
PROCEDURE INFORMATION: Exam: XR Chest Exam date and time: 11/14/2023 6:21 PM Age: 23 years old Clinical indication: Pain; Chest pressure; Additional info: Cp TECHNIQUE: Imaging protocol: Radiologic exam of the chest. Views: 1 view. COMPARISON: CR XR chest 1V portable [id number] 02/22/2022 2:34 PM FINDINGS: Lungs: Unremarkable. No consolidation. Pleural spaces: Unremarkable. No pleural effusion. No pneumothorax. Heart/Mediastinum: Unremarkable. No cardiomegaly. Bones/joints: Unremarkable. XR/XR chest 1V portable [id number] IMPRESSION: No acute findings.
--- NOTE | 2023-11-14 18:18 | ECG_ITS ---
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 Measurements Intervals [place] Rate: 98 P: 29 IN: 160 QRS: 64 QRSD: 92 T: 37 QT: 342 QTc: 437 Interpretive Statements SINUS RHYTHM LOW QRS VOLTAGE IN PRECORDIAL LEADS [QRS DEFLECTION < 1.0 mV IN CHEST LEADS] POSSIBLE RIGHT VENTRICULAR CONDUCTION DELAY [RSR (QR) IN V1/V2] Compared to ECG 04/23/2020 14:13:02 Myocardial infarct finding no longer present Electronically Signed On 11-15-2023 9:17:10 CDT by Wai Nava M.D. [email or web address]
--- NOTE | 2023-11-14 18:29 | ED_ITS ---
Documented by User: LIZETTE Clark 11/14/23 20:00 HPI - Chest Pain 2 General: Chief Complaint: Chest Pain Stated Complaint: chest pain Time Seen by Provider: 11/14/23 18:08 Source: patient Mode of arrival: ambulatory Limitations: no limitations History of Present Illness: Patient is a 23-year-old female presenting to the emergency department complaining of palpitations onset 1 week. Patient notes she was hospitalized in [facility] a couple weeks ago due to a heart rate in the 200s. She notes that following discharge she was symptom-free, however a week ago started developing palpitations again associated with some weakness, nausea, diaphoresis, and some chest pain. She denies any personal history of heart attacks or strokes, however states she was born with an innocent murmur. She denies any family history of heart attacks or strokes at early age. She notes that the episodes of palpitations and pain have been intermittent, and normally episodes are short but the episode prior to arrival was approximately 20-30 minutes. She is also still feeling the pain a little bit. The chest pain radiates down her right arm, and it will start unprovoked. The pain feels like a tightness, she has not had it prior to 2 weeks ago. No treatments prior to arrival. No history of long travels or shortness of breath. No history of blood clots. No other symptoms to report at this time. MD complaint: chest pain Onset (ago): week(s) (1) Timing of current episode: episodic and increasing Prior episodes: Yes Pain location: right chest and epigastric Pain radiation: right arm Severity: moderate Quality: tightness Relieving factors: nothing Exacerbating factors: nothing Associated symptoms: Reports diaphoresis, nausea and palpitations; Deny abdominal pain, dyspnea, fever(s) or vomiting Treatment prior to arrival: none Review of Systems 2 General: Reports: 10 or more systems reviewed and unremarkable except in HPI and below Const: Reports: diaphoresis; Denies: fever(s), chills, body aches or fatigue Eyes: Denies: change in vision ENMT: Denies: throat pain, ear or mastoid pain or nasal discharge Card: Reports: chest pain and palpitations; Denies: edema or lightheadedness Resp: Denies: dyspnea, productive cough or wheezing GI: Reports: nausea; Denies: abdominal pain, vomiting, diarrhea or change in bowel habits : Denies: flank pain, difficulty voiding, dysuria or urinary frequency Musc: Denies: neck pain, back pain or joint pain Skin/Breast: Denies: rash Neuro: Reports: weakness in extremities; Denies: headache(s) or numbness in extremities PFSH ED 2 PFSH: Medical History Frontal headache Anxiety Moderately severe major depression Severe preeclampsia Depression with anxiety Chronic migraine without aura, intractable, with status migrainosus No pertinent past medical history neghx:htn,dm,thyroid,dvt/pe PCP: Janeth Blake [employer] Closed fracture of phalanx of left index finger Surgical History Previous delivery affecting No pertinent past surgical history Family History Grandmother Cancer MGGM- breast and lung Grandmother Cancer PGF- Lung cancer Grandfather Cancer MGGF-- Colon cancer Denies family history of Diabetes CAD (coronary artery disease) Clotting disorder Dementia Hyperlipidemia Psychiatric illness Chronic kidney disease (CKD) Suicide Bleeding disorder Family history of premature coronary artery disease Lung disease Hypertension Stroke Social History Smoking and tobacco/nicotine status: never used tobacco/nicotine Alcohol intake: current Alcohol intake frequency: holidays/special occasions only Substance/Drug Use: current Substance/Drug use frequency: Special occassions/opportunity only Adopted: No Caregiver/support person: No Lives independently: Yes service: No Current occupational exposures/hazards: No Current gender identity: Female Female Reproductive History: Date of last menstrual period: 11/08/23 Physical Exam 2 Const: COMMON NORMALS: no acute distress, patient oriented x3 and no limitations GENERAL APPEARANCE: cooperative, comfortable and well developed ORIENTATION/CONSCIOUSNESS: Yes awake, Yes oriented to person, Yes oriented to place and Yes oriented to time HENMT: COMMON NORMALS: normocephalic, atraumatic and hearing grossly normal bilaterally HEAD & SCALP: normocephalic and atraumatic Eye: COMMON NORMALS: Equal, round and reactive pupils present, EOMs intact bilaterally and conjunctivae normal CONJUNCTIVA: Yes conjunctivae normal P UPIL: Yes Equal, round and reactive pupils present Neck/C-Spine: COMMON NORMALS: full ROM, supple and no JVD Resp: COMMON NORMALS: normal respiratory effort, No retractions, No use of accessory muscles and clear to auscultation bilaterally AUSCULTATION: clear to auscultation bilaterally Cardio: COMMON NORMALS: no JVD, regular rate, regular rhythm, No clicks present (Cardio), No murmurs present (Cardio) and No rub (Cardio) RATE: r egular rate RHYTHM: regular rhythm GI: COMMON NORMALS: Normal to inspection, nondistended, normoactive bowel sounds present, Soft to palpation and non-tender AUSCULTATION: Yes normoactive bowel sounds PALPATION: Yes Soft to palpation RECTAL EXAM: d eferred Extremity: COMMON NORMALS: normal to inspection, full ROM and capillary refill normal Neuro: COMMON NORMALS: patient oriented x3, moves all extremities, no focal motor deficits and no sensory deficits noted SENSORIUM/ORIENTATION: Yes oriented to person, Yes oriented to place and Yes oriented to time Psych: COMMON NORMALS: mental status grossly normal and Normal thought process present THOUGHT PROCESS: Normal thought process present Skin: COMMON NORMALS: no rashes or lesions noted GENERAL SKIN EXAM: no rashes or lesions noted Course 2 Vital Signs: Vital signs: Vital Signs Temperature 98.5 F 11/14/23 18:04 Pulse Rate 82 11/14/23 19:40 Respiratory Rate 18 11/14/23 19:40 Blood Pressure 125/56 11/14/23 19:40 Pulse Oximetry 99 11/14/23 19:40 Oxygen Delivery Me thod Room Air 11/14/23 18:04 MDM - Chest Pain Medical Decision Making Patient seen and evaluated due to episode of palpitations today, which she has been having intermittently over the past week. Patient hospitalized 2 weeks ago in [place] for the same issue, and was discharged with outpatient follow-up. Was not referred to cardiology. On arrival patient's vitals overall unremarkable, normal blood pressure, with slightly elevated heart rate. She was not symptomatic at time of examination, but had been noting some radiating chest pain, nausea, weakness. Ordered cardiac workup, of which was negative. Normal troponin and basic laboratory workup. D-dimer was slightly elevated, and due to patient's tachycardia and pain, ordered a CTA which was negative for any signs of PE. EKG also unremarkable. Patient rechecked after liter of fluids, stating she feels better. I did inform her however that she needs to follow-up with cardiology on an outpatient basis, of which I will refer her. We had a thorough conversation of potential further testing that needs to be done. Patient agrees with this plan and will follow-up as directed. We also had a thorough conversation on return precautions, of which she understands. Lab Data I reviewed the patient's lab results. 11/14/23 18:29 11/14/23 18:29 Radiology Impressions Chest X-Ray 11/14/23 18:18 IMPRESSION: No acute findings. Chest CTA 11/14/23 19:15 IMPRESSION: 1. No evidence of pulmonary artery embolism. 2. No acute cardiopulmonary disease. Laboratory Results WBC 10.12 10^3/uL (3.29-11.43) 11/14/23 18:29 RBC 5.79 10^6/uL (3.85-5.65) H 11/14/23 18:29 Hgb 14.30 g/dL (11.27-16.99) 11/14/23 18:29 Hct 45.4 % (36-47) 11/14/23 18:29 MCV 78.4 fl (85-98) L 11/14/23 18:29 MCH 24.7 pg (27-33) L 11/14/23 18: MCHC 31.5 g/dL (30-55) 11/14/23 18:29 RDW 14.7 % (12.1-15.1) 11/14/23 18: Plt Count 294 10^3/cmm (157-399) 11/14/23 18:29 MPV 9.6 fL (7.4-10.4) 11/14/23 18:29 Neut % (Auto) 65.8 % 11/14/23 18: Lymph % (Auto) 24.9 % 11/14/23 18:29 Tate % (Auto) 5.1 % 11/14/23 18:29 Eos % (Auto) 3.3 % 11/14/23 18:29 Baso % (Auto) 0.6 % 11/14/23 18:29 Neut # (Auto) 6.66 10^3/uL (1.8-7.7) 11/14/23 18: Lymph # (Auto) 2.5 10^3/uL (0.8-4.8) 11/14/23 18: Tate # (Auto) 0.5 10^3/uL (0.2-0.9) 11/14/23 18: Eos # (Auto) 0.3 10^3/uL (0.0-0.8) 11/14/23 18: Baso # (Auto) 0.1 10^3/uL (0.0-0.1) 11/14/23 18: Nucleated RBC % (auto) 0 % 11/14/23 18: Nucleated RBCs # 0.0 /100WBC 11/14/23 18: D-Dimer 1.05 ug/mLFEU (0-0.59) H 11/14/23 18: Sodium 140 mmol/L (136-145) 11/14/23 18: Potassium 3.9 mmol/L (3.5-5.1) 11/14/23 18: Chloride 102 mmol/L (98-107) 11/14/23 18: Carbon Dioxide 22 mmol/L (22-29) 11/14/23 18: Anion Gap 19.9 (5-19) H 11/14/23 18: BUN 13 mg/dL (6-20) 11/14/23 18: Creatinine 0.7 mg/dL (0.5-0.9) 11/14/23 18: GFR Calculation 103.7 mL/min (90-130) 11/14/23 18: Glucose 91 mg/dL (65-115) 11/14/23 18: Calculated Osmolality 290 mOsm/kg (285-295) 11/14/23 18: Calcium 9.4 mg/dL (8.5-10.5) 11/14/23 18: Total Bilirubin 0.2 mg/dL (0.15-1.2) 11/14/23 18: AST 15 U/L (0-32) 11/14/23 18: ALT 14 U/L (0-33) 11/14/23 18: Alkaline Phosphatase 100 U/L (35-105) 11/14/23 18: Troponin T Baseline < 6 ng/L (0-10) 11/14/23 18:29 Total Protein 8.2 g/dL (6.6-8.7) 11/14/23 18:29 Albumin 4.4 g/dL (3.5-5.2) 11/14/23 18: Globulin 3.8 g/dL (1.3-4.6) 11/14/23 18:29 Lipase 28 U/L (13-60) 11/14/23 18:29 HCG, Qual Negative (Negative) 11/14/23 18:29 Urine Color Yellow (Yellow) 11/14/23 18:29 Urine Appearance Clear (CLEAR) 11/14/23 18:29 Urine pH 5 (5-7) 11/14/23 18:29 Ur Specific [place] 1.025 (1.005-1.030) 11/14/23 18:29 Urine Protein Neg (Negative) 11/14/23 18:29 Urine Glucose (UA) Norm (Normal) 11/14/23 18:29 Urine Ketones Negative (Negative) 11/14/23 18:29 Urine Blood Neg (Negative) 11/14/23 18:29 Urine Nitrate Negative (Negative) 11/14/23 18:29 Urine Bilirubin Neg (Negative) 11/14/23 18:29 Urine Urobilinogen Norm mg/dL (Negative) 11/14/23 18:29 Ur Leukocyte Esterase Negative (Negative) 11/14/23 18:29 All radiology interpretation(s) finalized by discharge Discharge Plan Discharge Patient Disposition: Home Clinical Impression: Chest pain Qualifiers: Chest pain type: unspecified Qualified Code(s): R07.9 - Chest pain, unspecified Condition: Stable Prescriptions: No Action ondansetron 4 mg tablet,disintegrating 4 mg PO Q6H PRN (Reason: nausea and vomiting) Qty: 10 0RF estradiol [Estrace] 0.01 % (0.1 mg/gram) cream 1 g vaginal .2-3 times weekly Qty: 42.5 0RF Rx Instructions: space out doses Xulane 150-35 mcg/24 hr patch weekly 1 patch transdermal Q7D Qty: 9 0RF Rx Instructions: apply once weekly for 3 weeks of a 4-week cycle escitalopram oxalate [Lexapro] 10 mg tablet 10 mg PO DAILY Qty: 60 0RF Discharge Orders: Discharge ED (Routine); Ordered 11/14/23 Ordered By: Jayson Lala Referrals: Adalid Estrella MD [Primary Care Provider] - Discharge Diet: Usual diet Discharge Activity: Increase activity as tolerated Patient Instructions: Chest Pain (ED) Activity Restrictions/Additional Instructions: Follow-up with cardiology as discussed. Monitor for any worsening of chest pain, breathing difficulties, and return for reevaluation. Coding Level of Care Code ED Dry Placer Machine Operator for Chg Fwd Documented by User: Bryce Winchester DO 11/18/23 08:23 HPI - Chest Pain 2 General: Chief Complaint: Chest Pain Stated Complaint: chest pain Time Seen by Provider: 11/14/23 18:08 PFSH ED 2 PFSH: Medical History Frontal headache Anxiety Moderately severe major depression Severe preeclampsia Depression with anxiety Chronic migraine without aura, intractable, with status migrainosus No pertinent past medical history neghx:htn,dm,thyroid,dvt/pe PCP: Janeth Blake [employer] Closed fracture of phalanx of left index finger Surgical History Previous delivery affecting No pertinent past surgical history Family History Grandmother Cancer MGGM- breast and lung Grandmother Cancer PGF- Lung cancer Grandfather Cancer MGGF-- Colon cancer Denies family history of Diabetes CAD (coronary artery disease) Clotting disorder Dementia Hyperlipidemia Psychiatric illness Chronic kidney disease (CKD) Suicide Bleeding disorder Family history of premature coronary artery disease Lung disease Hypertension Stroke Social History Smoking and tobacco/nicotine status: never used tobacco/nicotine Alcohol intake: current Alcohol intake frequency: holidays/special occasions only Substance/Drug Use: current Substance/Drug use frequency: Special occassions/opportunity only Adopted: No Caregiver/support person: No Lives independently: Yes service: No Current occupational exposures/hazards: No Current gender identity: Female Course 2 Vital Signs: Vital signs: Vital Signs Temperature 98.5 F 11/14/23 18:04 Pulse Rate 82 11/14/23 19:40 Respiratory Rate 18 11/14/23 19:40 Blood Pressure 125/56 11/14/23 19:40 Pulse Oximetry 99 11/14/23 19:40 Oxygen Delivery Me thod Room Air 11/14/23 18:04 MDM - Chest Pain Medical Decision Making Patient seen and evaluated due to episode of palpitations today, which she has been having intermittently over the past week. Patient hospitalized 2 weeks ago in [place] for the same issue, and was discharged with outpatient follow-up. Was not referred to cardiology. On arrival patient's vitals overall unremarkable, normal blood pressure, with slightly elevated heart rate. She was not symptomatic at time of examination, but had been noting some radiating chest pain, nausea, weakness. Ordered cardiac workup, of which was negative. Normal troponin and basic laboratory workup. D-dimer was slightly elevated, and due to patient's tachycardia and pain, ordered a CTA which was negative for any signs of PE. EKG also unremarkable. Patient rechecked after liter of fluids, stating she feels better. I did inform her however that she needs to follow-up with cardiology on an outpatient basis, of which I will refer her. We had a thorough conversation of potential further testing that needs to be done. Patient agrees with this plan and will follow-up as directed. We also had a thorough conversation on return precautions, of which she understands. Chart reviewed Lab Data 11/14/23 18:29 11/14/23 18:29 Radiology Impressions Chest X-Ray 11/14/23 18:18 IMPRESSION: No acute findings. Chest CTA 11/14/23 19:15 IMPRESSION: 1. No evidence of pulmonary artery embolism. 2. No acute cardiopulmonary disease. Laboratory Results WBC 10.12 10^3/uL (3.29-11.43) 11/14/23 18:29 RBC 5.79 10^6/uL (3.85-5.65) H 11/14/23 18:29 Hgb 14.30 g/dL (11.27-16.99) 11/14/23 18: Hct 45.4 % (36-47) 11/14/23 18: MCV 78.4 fl (85-98) L 11/14/23 18: MCH 24.7 pg (27-33) L 11/14/23 18: MCHC 31.5 g/dL (30-55) 11/14/23 18: RDW 14.7 % (12.1-15.1) 11/14/23: Plt Count 294 10^3/cmm (157-399) 11/14/23: MPV 9.6 fL (7.4-10.4) 11/14/23: Neut % (Auto) 65.8 % 11/14/23 18: Lymph % (Auto) 24.9 % 11/14/23: Tate % (Auto) 5.1 % 11/14/23 18: Eos % (Auto) 3.3 % 11/14/23: Baso % (Auto) 0.6 % 11/14/23: Neut # (Auto) 6.66 10^3/uL (1.8-7.7) 11/14/23: Lymph # (Auto) 2.5 10^3/uL (0.8-4.8) 11/14/23: Tate # (Auto) 0.5 10^3/uL (0.2-0.9) 11/14/23: Eos # (Auto) 0.3 10^3/uL (0.0-0.8) 11/14/23: Baso # (Auto) 0.1 10^3/uL (0.0-0.1) 11/14/23: Nucleated RBC % (auto) 0 % 11/14/23 Nucleated RBCs # 0.0 /100WBC 11/14/23 D-Dimer 1.05 ug/mLFEU (0-0.59) H 11/14/23 18: Sodium 140 mmol/L (136-145) 11/14/23 18: Potassium 3.9 mmol/L (3.5-5.1) 11/14/23 18: Chloride 102 mmol/L (98-107) 11/14/23 18: Carbon Dioxide 22 mmol/L (22-29) 11/14/23 18:29 Anion Gap 19.9 (5-19) H 11/14/23 18: BUN 13 mg/dL (6-20) 11/14/23 18: Creatinine 0.7 mg/dL (0.5-0.9) 11/14/23 18: GFR Calculation 103.7 mL/min (90-130) 11/14/23 18: Glucose 91 mg/dL (65-115) 11/14/23 18: Calculated Osmolality 290 mOsm/kg (285-295) 11/14/23 18: Calcium 9.4 mg/dL (8.5-10.5) 11/14/23 18: Total Bilirubin 0.2 mg/dL (0.15-1.2) 11/14/23 18: AST 15 U/L (0-32) 11/14/23 18: ALT 14 U/L (0-33) 11/14/23 18: Alkaline Phosphatase 100 U/L (35-105) 11/14/23 18: Troponin T Baseline < 6 ng/L (0-10) 11/14/23 18:29 Total Protein 8.2 g/dL (6.6-8.7) 11/14/23 18: Albumin 4.4 g/dL (3.5-5.2) 11/14/23 18: Globulin 3.8 g/dL (1.3-4.6) 11/14/23 18: Lipase 28 U/L (13-60) 11/14/23 18: HCG, Qual Negative (Negative) 11/14/23 18: Urine Color Yellow (Yellow) 11/14/23 18: Urine Appearance Clear (CLEAR) 11/14/23 18: Urine pH 5 (5-7) 11/14/23 18: Ur Specific [place] 1.025 (1.005-1.030) 11/14/23 18: Urine Protein Neg (Negative) 11/14/23 18: Urine Glucose (UA) Norm (Normal) 11/14/23 18:29 Urine Ketones Negative (Negative) 11/14/23 18: Urine Blood Neg (Negative) 11/14/23 18: Urine Nitrate Negative (Negative) 11/14/23 18:29 Urine Bilirubin Neg (Negative) 11/14/23 18:29 Urine Urobilinogen Norm mg/dL (Negative) 11/14/23 18:29 Ur Leukocyte Esterase Negative (Negative) 11/14/23 18:29 Discharge Plan Discharge Patient Disposition: Home Clinical Impression: Chest pain Qualifiers: Chest pain type: unspecified Qualified Code(s): R07.9 - Chest pain, unspecified Condition: Stable Prescriptions: No Action ondansetron 4 mg tablet,disintegrating 4 mg PO Q6H PRN (Reason: nausea and vomiting) Qty: 10 0RF estradiol [Estrace] 0.01 % (0.1 mg/gram) cream 1 g vaginal .2-3 times weekly Qty: 42.5 0RF Rx Instructions: space out doses Xulane 150-35 mcg/24 hr patch weekly 1 patch transdermal Q7D Qty: 9 0RF Rx Instructions: apply once weekly for 3 weeks of a 4-week cycle escitalopram oxalate [Lexapro] 10 mg tablet 10 mg PO DAILY Qty: 60 0RF Discharge Orders: Discharge ED (Routine); Ordered 11/14/23 Ordered By: Jayson Lala Referrals: Adalid Estrella MD [Primary Care Provider] - Discharge Diet: Usual diet Discharge Activity: Increase activity as tolerated Patient Instructions: Chest Pain (ED) Activity Restrictions/Additional Instructions: Follow-up with cardiology as discussed. Monitor for any worsening of chest pain, breathing difficulties, and return for reevaluation. Coding Level of Care Code ED Dry Placer Machine Operator for Karley Rodriguez
[2023-11-14 18:48] LABS: Basophils # 0.1 10^3/uL (0.0-0.1); Basophils % 0.6 %; Eosinophils # 0.3 10^3/uL (0.0-0.8); Eosinophils % 3.3 %; Hematocrit 45.4 % (36-47); Lymphocytes # 2.5 10^3/uL (0.8-4.8); Lymphocytes % 24.9 %; Mean Corpuscular HGB Conc 31.5 g/dL (30-55); Mean Corpuscular Hemoglobin 24.7 pg (27-33); Mean Corpuscular Volume 78.4 fl (85-98); Mean Platelet Volume 9.6 fL (7.4-10.4); Monocytes # 0.5 10^3/uL (0.2-0.9); Monocytes % 5.1 %; Neutrophils # 6.66 10^3/uL (1.8-7.7); Neutrophils % 65.8 %; Nucleated Red Blood Cells % 0 %; Platelet Count 294 10^3/cmm (157-399); Red Blood Count 5.79 10^6/uL (3.85-5.65); Red Cell Distribution Width 14.7 % (12.1-15.1); White Blood Count 10.12 10^3/uL (3.29-11.43)
[2023-11-14 18:49] LABS: Add Urine Microscopic? NO; Charge for UA Resulting for Rev
[2023-11-14] MEDS: sodium chloride 0.9% 1,000 ML 999 ML IV (18:52)
[2023-11-14 18:54] LABS: Bilirubin Urine Neg (Negative); Blood Urine Neg (Negative); Glucose Urine UA Norm (Normal); Ketones Urine Negative (Negative); Leukocyte Esterase Urine Negative (Negative); Nitrate Urine Negative (Negative); Protein Urine Neg (Negative); Specific Gravity, Urine 1.025 (1.005-1.030); Urine Appearance Clear (CLEAR); Urine Color Yellow (Yellow); Urobilinogen Urine Norm (Negative); pH Urine 5 (5-7)
[2023-11-14 19:01] LABS: HCG, Serum Qual Negative (Negative)
[2023-11-14 19:06] VITALS: BP 125/59; PULSE 90; RESP 18; O2SAT 97
[2023-11-14 19:06] LABS: D Dimer 1.05 ug/mLFEU (0-0.59)
[2023-11-14 19:11] LABS: Troponin(5th) Baseline < 6 ng/L (0-10)
[2023-11-14 19:12] LABS: Alanine Aminotransferase 14 U/L (0-33); Albumin Level 4.4 g/dL (3.5-5.2); Alkaline Phosphatase 100 U/L (35-105); Anion Gap 19.9 (5-19); Aspartate Amino Transferase 15 U/L (0-32); Blood Urea Nitrogen 13 mg/dL (6-20); Calcium 9.4 mg/dL (8.5-10.5); Carbon Dioxide 22 mmol/L (22-29); Chloride 102 mmol/L (98-107); Creatinine Clr Calc Pharmacy 134.6498; Globulin 3.8 g/dL (1.3-4.6); Glomerular Filtration Rate 103.7 mL/min (90-130); Glucose 91 mg/dL (65-115); Lipase 28 U/L (13-60); Osmolality Calculated 290 mOsm/kg (285-295); Potassium 3.9 mmol/L (3.5-5.1); Sodium 140 mmol/L (136-145); Total Bilirubin 0.2 mg/dL (0.15-1.2); Total Protein 8.2 g/dL (6.6-8.7)
--- NOTE | 2023-11-14 19:15 | CTR_ITS ---
PROCEDURE INFORMATION: Exam: CTA Chest With Contrast Exam date and time: 11/14/2023 7:24 PM Age: 23 years old Clinical indication: Pleuordynia and other: Chest pain; Additional info: Tachy, elevated d-dimer TECHNIQUE: Imaging protocol: Computed tomographic angiography of the chest with contrast. Exam focused on the arteries. 3D rendering (Not supervised by radiologist): MIP and/or 3D reconstructed images were created by the technologist. Radiation optimization: All CT scans at this facility use at least one of these dose optimization techniques: automated exposure control; mA and/or kV adjustment per patient size (includes targeted exams where dose is matched to clinical indication); or iterative reconstruction. Contrast material: OMNI 350; Contrast volume: 60 ml; Contrast route: INTRAVENOUS (IV); COMPARISON: CT chest abdpel w/*[id number] 04/23/2020 3:01 PM RADIATION DOSE METRICS: Total DLP (mGy-cm): 328.78 FINDINGS: Pulmonary arteries: The pulmonary arteries are well visualized to the distal segmental level. No filling defects are identified to suggest pulmonary artery embolism. The main pulmonary artery is normal in size. There is no evidence of right heart strain. Aorta: The aorta is normal in course and caliber. No significant atherosclerotic calcifications are present. Thymus: Increased soft tissue density in the anterior mediastinum is consistent with residual thymic tissue. Lungs: No pulmonary consolidation or pulmonary infarct. No pulmonary mass or suspicious pulmonary nodule. Pleural spaces: No pleural effusion or pneumothorax. Heart: Heart size is within normal limits. There is no pericardial effusion or pericardial thickening. Coronary arteries: No coronary artery calcification. Lymph nodes: There are no enlarged mediastinal, axillary, or hilar lymph nodes identified. Bones/joints: No acute osseous abnormalities are seen. Soft tissues: The soft tissues are within normal limits. CT/CT angio chest PE protcl [id number] IMPRESSION: 1. No evidence of pulmonary artery embolism. 2. No acute cardiopulmonary disease.
[2023-11-14] MEDS: iohexol 350 mg/mL 500 mL Btl (per mL) IV (19:32)
[2023-11-14 19:40] VITALS: BP 125/56; PULSE 82; RESP 18; O2SAT 99
--- NOTE | 2023-11-14 20:18 | ECG_ITS ---
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 Measurements Intervals [place] Rate: 82 P: 33 ND: 180 QRS: 48 QRSD: 104 T: 50 QT: 364 QTc: 426 Interpretive Statements SINUS RHYTHM LOW QRS VOLTAGE IN PRECORDIAL LEADS [QRS DEFLECTION < 1.0 mV IN CHEST LEADS] POSSIBLE RIGHT VENTRICULAR CONDUCTION DELAY [RSR (QR) IN V1/V2] Compared to ECG 11/14/2023 18:00:29 No significant changes Electronically Signed On 11-15-2023 9:18:05 CDT by Wai Nava M.D. [id number]
--- NOTE | 2023-11-15 07:28 | DCPLANNER ---
Message sent to cardiology for follow up- Chest pain
== END 2023-11-14 20:19 | disposition home or self-care (01) ==
PROVIDERS: Emergency Provider Physician Assistant; PCP Family Medicine
DX: R07.9 Chest pain, unspecified (principal)
CPT/HCPCS: 71045; 71275; 80053; 81003; 83690; 84484; 84703; 85025; 85378; 93005; 96360; 99285; J7030; Q9967

== ENCOUNTER 2023-12-14 16:50 | Emergency (ER) | payer BC, MEDICAID, SELFPAY ==
[2023-12-14 16:54] VITALS: BP 127/67; PULSE 68; TEMP 36.7; O2SAT 100; BMI 29.0
[2023-12-14 18:30] VITALS: BP 128/68; PULSE 78; O2SAT 99
[2023-12-14 18:56] LABS: Basophils % 0.5 %; Eosinophils # 0.2 10^3/uL (0.0-0.8); Hematocrit 37.3 % (36-47); Lymphocytes # 2.1 10^3/uL (0.8-4.8); Lymphocytes % 32.4 %; Mean Corpuscular HGB Conc 31.9 g/dL (30-55); Mean Corpuscular Hemoglobin 25.5 pg (27-33); Mean Platelet Volume 9.5 fL (7.4-10.4); Monocytes # 0.4 10^3/uL (0.2-0.9); Monocytes % 6.7 %; Neutrophils # 3.67 10^3/uL (1.8-7.7); Neutrophils % 57.1 %; Nucleated Red Blood Cells % 0 %; Platelet Count 242 10^3/cmm (157-399); Red Blood Count 4.66 10^6/uL (3.85-5.65); Red Cell Distribution Width 15.1 % (12.1-15.1); White Blood Count 6.42 10^3/uL (3.29-11.43)
--- NOTE | 2023-12-14 20:02 | ED_ITS ---
HPI - Female Genitourinary 2 General: Chief complaint: Vaginal Bleeding Stated complaint: abd pain Time Seen by Provider: 12/14/23 18:04 History of Present Illness: Patient presents to the ER with complaints of sudden onset heavy vaginal bleeding today. She been saturating a pad every 1-2 hours. And passing clots. Patient says she gets dizzy and weak. Patient's last normal menstrual period was on 12/06/2023. Patient does not think she is however she is not consistent with her oral contraceptive. Patient did states the bedspread folder did start her on a daily hormone pill for vaginal dryness type issues. 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 Closed fracture of phalanx of left index finger Surgical History Previous delivery affecting No pertinent past surgical history Family History Grandmother Cancer MGGM- breast and lung Grandmother Cancer PGF- Lung cancer Grandfather Cancer MGGF-- Colon cancer Denies family history of Diabetes CAD (coronary artery disease) Clotting disorder Dementia Hyperlipidemia Psychiatric illness Chronic kidney disease (CKD) Suicide Bleeding disorder Family history of premature coronary artery disease Lung disease Hypertension Stroke Physical Exam 2 Const: COMMON NORMALS: no acute distress, average body habitus, patient oriented x3, no limitations, healthy appearing, alert and well nourished HENMT: COMMON NORMALS: normocephalic, atraumatic, hearing grossly normal bilaterally, external ears normal, Normal external nose present, moist oral mucous membranes and oropharynx normal HEAD & SCALP: normocephalic and atraumatic NOSE: Normal external nose present EXTERNAL EAR: Yes external ears normal Neck/C-Spine: COMMON NORMALS: no JVD Resp: COMMON NORMALS: normal respiratory effort, No retractions, No use of accessory muscles and clear to auscultation bilaterally AUSCULTATION: clear to auscultation bilaterally Cardio: COMMON NORMALS: no JVD, regular rate, regular rhythm, S1 normal heart sound present, S2 normal heart sound present, No gallops present (Cardio), No clicks present (Cardio), No murmurs present (Cardio) and No rub (Cardio) R ATE: regular rate RHYTHM: regular rhythm HEART SOUNDS: S1 normal heart sound present and S2 normal heart sound present GI: COMMON NORMALS: Normal to inspection, nondistended, normoactive bowel sounds present, Soft to palpation, non-tender and no masses PALPATION: Yes Soft to palpation Neuro: COMMON NORMALS: patient oriented x3 SENSORIUM/ORIENTATION: Yes alert Course 2 Vital Signs: Vital signs: Vital Signs Temperature 98.1 F 12/14/23 16:54 Pulse Rate 78 12/14/23 18:30 Blood Pressure 128/68 12/14/23 18:30 Pulse Oximetry 99 12/14/23 18:30 Oxygen Delivery Me thod Room Air 12/14/23 16:54 MDM - Female Medical Decision Making Patient CBC and quantitative both of which were essentially negative. Patient's hemoglobin was 11.9. Patient was informed of these results and will be discharged back to follow-up with her AUTOMOTIVE MECHANIC for further evaluation and treatment. Lab Data 12/14/23 18:33 Laboratory Results WBC 6.42 10^3/uL (3.29-11.43) 12/14/23 18:33 RBC 4.66 10^6/uL (3.85-5.65) 12/14/23 18:33 Hgb 11.90 g/dL (11.27-16.99) 12/14/23 18:33 Hct 37.3 % (36-47) 12/14/23 18:33 MCV 80.0 fl (85-98) L 12/14/23 18: MCH 25.5 pg (27-33) L 12/14/23 18: MCHC 31.9 g/dL (30-55) 12/14/23 18: RDW 15.1 % (12.1-15.1) 12/14/23 18:33 Plt Count 242 10^3/cmm (157-399) 12/14/23 18: MPV 9.5 fL (7.4-10.4) 12/14/23 18:33 Neut % (Auto) 57.1 % 12/14/23 18:33 Lymph % (Auto) 32.4 % 12/14/23 18:33 [place] % (Auto) 6.7 % 12/14/23 18:33 Eos % (Auto) 3.0 % 12/14/23 18:33 Baso % (Auto) 0.5 % 12/14/23 18:33 Neut # (Auto) 3.67 10^3/uL (1.8-7.7) 12/14/23 18:33 Lymph # (Auto) 2.1 10^3/uL (0.8-4.8) 12/14/23 18:33 [place]ima # (Auto) 0.4 10^3/uL (0.2-0.9) 12/14/23 18:33 Eos # (Auto) 0.2 10^3/uL (0.0-0.8) 12/14/23 18:33 Baso # (Auto) 0.0 10^3/uL (0.0-0.1) 12/14/23 18:33 Nucleated RBC % (auto) 0 % 12/14/23 18: Nucleated RBCs # 0.0 /100WBC 12/14/23 18:33 Ser , Semi-Qnt 1.00 mIU/mL 12/14/23 18:33 No radiology studies performed this visit Discharge Plan Discharge Patient Disposition: Home Clinical Impression: Vaginal bleeding Condition: Stable Prescriptions: No Action Xulane 150-35 mcg/24 hr patch weekly 1 patch transdermal Q7D Qty: 9 3RF Rx Instructions: apply once weekly for 3 weeks of a 4-week cycle amitriptyline 10 mg tablet 10 mg PO .hs Qty: 30 3RF ondansetron 4 mg tablet,disintegrating 4 mg PO Q6H PRN (Reason: nausea and vomiting) Qty: 10 0RF escitalopram oxalate [Lexapro] 10 mg tablet 10 mg PO DAILY Qty: 60 0RF Discharge Orders: Discharge ED (Routine); Ordered 12/14/23 Ordered By: Jaylon Hoffman Referrals: Adalid Estrella MD [Primary Care Provider] - 1 week Patient Instructions: Abnormal (Dysfunctional) Uterine Bleeding (ED) Activity Restrictions/Additional Instructions: Your lab work in the ER showed your hemoglobin was 11.9 and your quantitative hCG was 1. Shows you are not anemic or . Please follow-up with your AUTOMOTIVE MECHANIC for further evaluation and treatment. Coding Level of Care Code ED Surface Ship Usw Supervisor for Karley Rodriguez
[2023-12-14 20:53] VITALS: BP 128/68; PULSE 78; TEMP 36.7; O2SAT 99
== END 2023-12-14 20:53 | disposition home or self-care (01) ==
PROVIDERS: Emergency Medicine; Emergency Provider Emergency Medicine; PCP Family Medicine
DX: N93.9 Abnormal uterine and vaginal bleeding, unspecified (principal)
CPT/HCPCS: 36415; 84702; 85025; 99283

== ENCOUNTER → 2024-03-28 13:36 | Outpatient (BNVA) | payer BC, MEDICAID, SELFPAY | PROVIDERS: PCP Family Medicine; Visit Provider Internal Medicine Cardiovascular Disease | DX: R07.9 Chest pain, unspecified (principal) | CPT/HCPCS: 93005 ==

== ENCOUNTER 2024-04-03 10:07 | Outpatient (CLI) | payer BC, MEDICAID, SELFPAY ==
[2024-04-03 11:02] LABS: Chol HDL Ratio 3.03 mg/dL (0.0-4.40); Cholesterol 103 mg/dL (0-200); HDL Cholesterol 34 mg/dL (60-100); LDL Cholesterol Calculated 53 mg/dL (50-129); LDL HDL Ratio 1.56 RATIO (0.00-3.22); Triglycerides 80 mg/dL (0-150)
== END 2024-04-03 10:08 | disposition home or self-care (01) ==
LOC: LAB 10:08
PROVIDERS: PCP Family Medicine; Visit Provider Internal Medicine Cardiovascular Disease
DX: E78.5 Hyperlipidemia, unspecified (principal)
CPT/HCPCS: 36415; 80061

== ENCOUNTER 2024-04-23 07:25 | Outpatient (CLI) | payer BC, MEDICAID, SELFPAY ==
--- NOTE | 2024-04-23 07:30 | USCV_ITS ---
[facility] Age: 24 Gender: F : 2000 Exam Date: 04/23/2024 07:44 Ordering Phys: Narda Mchugh MD ([email or web address]) Technologist: TITO [place] [facility] [place]ication: CHEST PAIN BP: 110 / 80 HR: 85 Rhythm: Sinus Technical Quality: Adequate MEASUREMENTS (Male / Female) Normal Values 2D ECHO LV Diastolic Diameter PLAX 4.3 cm 4.2 - 5.9 / 3.9 - 5.3 cm IVS Diastolic Thickness 1.3 cm 0.6 - 1.0 / 0.6 - 0.9 cm IVS Systolic Thickness 1.8 cm LVPW Diastolic Thickness 1.6 cm 0.6 - 1.0 / 0.6 - 0.9 cm LVPW Systolic Thickness 1.7 cm LVOT Diameter 2.0 cm LV Ejection Fraction 2D Teich 66.1 % LV Ejection Fraction MOD 4C 59.4 % LV Ejection Fraction MOD 2C 54.1 % LV Ejection Fraction 2C AL 54.6 % LA Diameter 2.7 cm RA Systolic Volume 4C AL 19.0 ml RA Systolic Volume 4C MOD 18.5 ml LA Sys Volume AL 25.0 cm cubed LA Sys Volume Index AL 12.3 cm cubed/m squared Aorta at Sinotubular Diameter 2.1 cm IVC Diameter 1.7 cm M-MODE LA Ao Ratio MM 1.1 AV Cusp Separation MM 1.7 cm DOPPLER AV Peak Velocity 128.0 cm/s LVOT Peak Velocity 96.0 cm/s AV Area Cont Eq vti 2.3 cm squared AV Area Cont Eq pk 2.4 cm squared MV Peak Velocity 99.0 cm/s MV Area PHT 6.1 cm squared Mitral E to A Ratio 1.3 TR Peak Velocity 148.0 cm/s TR Peak Gradient 8.8 mmHg TR Mean Velocity 124.0 cm/s TR Mean Gradient 6.6 mmHg TR Velocity Time Integral 40.9 cm TV Peak E Velocity 59.0 cm/s Right Atrial Pressure 3.0 mmHg Pulmonary Artery Systolic Pressu 11.8 mmHg PV Peak Velocity 104.0 cm/s RV Ejection Time 0.3 s FINDINGS Left Ventricle Normal left ventricular size, systolic function and wall thickness, with no regional wall motion abnormalities. Left ventricular ejection fraction is estimated at 65 %. Normal left ventricular filling pressure. Right Ventricle The right ventricle is normal in size and function. Right Atrium The right atrium is normal in size. Left Atrium The left atrium is normal in size. Mitral Valve Structurally normal mitral valve without significant stenosis or prolapse. There is no mitral regurgitation. Aortic Valve Structurally normal aortic valve without significant sclerosis or stenosis. There is no aortic regurgitation. Tricuspid Valve Structurally normal tricuspid valve without significant stenosis or regurgitation. Pulmonary artery systolic pressure is normal. Pulmonic Valve Structurally normal pulmonic valve without significant stenosis. There is no pulmonic regurgitation. Pericardium Normal pericardium without effusion. Aorta Normal ascending aorta dimension. IVC The inferior vena cava appears normal. CONCLUSIONS Normal left ventricular size, systolic function and wall thickness, with no regional wall motion abnormalities. Left ventricular ejection fraction is estimated at 65 %. Normal left ventricular filling pressure. No significant valve abnormalities. There is no pericardial effusion. Right atrial pressure is around 5 mm of mercury. Narda Mchugh MD (Electronically Signed) Final Date: 25 April 2024 11:34 S
== END 2024-04-23 07:26 | disposition home or self-care (01) ==
LOC: RAD 07:25
PROVIDERS: PCP Family Medicine; Visit Provider Internal Medicine Cardiovascular Disease
DX: R07.9 Chest pain, unspecified (principal)
CPT/HCPCS: 93306

== ENCOUNTER 2024-05-14 12:15 | Outpatient (CLI) | payer BC, MEDICAID, SELFPAY ==
--- NOTE | 2024-05-14 | ECG_ITS ---
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
[2024-05-14 12:17] VITALS: BMI 29.0
[2024-05-14 12:46] VITALS: BP 123/69; PULSE 109
== END 2024-05-14 12:16 | disposition home or self-care (01) ==
PROVIDERS: PCP Family Medicine; Visit Provider Internal Medicine Cardiovascular Disease
DX: R07.9 Chest pain, unspecified (principal); R06.02 Shortness of breath
CPT/HCPCS: 93017